=== PATIENT | female | born 1990 | race Caucasian/White ===

== ENCOUNTER → 2021-02-10 14:40 | Outpatient (BNVA) | payer MEDICARE, MEDICAID, SELFPAY | PROVIDERS: Visit Provider Nurse Practitioner | DX: N92.6 Irregular menstruation, unspecified (principal) | CPT/HCPCS: 81025 ==

== ENCOUNTER → 2021-07-14 11:26 | Outpatient (BNVA) | payer MEDICARE, MEDICAID, SELFPAY | PROVIDERS: Visit Provider Nurse Practitioner Family | DX: Z20.822 Contact with and (suspected) exposure to COVID-19 (principal); J06.9 Acute upper respiratory infection, unspecified | CPT/HCPCS: 87635 ==

== ENCOUNTER 2021-07-14 13:00 | Emergency (ER) | payer MEDICARE, MEDICAID, SELFPAY ==
[2021-07-14 13:06] VITALS: BP 115/72; PULSE 68; RESP 18; TEMP 36.8; O2SAT 99; BMI 25.0
[2021-07-14 13:35] VITALS: BP 126/74; PULSE 77; TEMP 36.9; O2SAT 98
--- NOTE | 2021-07-14 13:35 | XR_ITS ---
WS: [id number] Exam: XR acute abdomen series [id number] Date/Time of Exam: 07/14/2021 1:39 PM Reason For Exam: Abd Pain AP portable chest. No priors. The lungs are clear and fully inflated. Normal cardiomediastinal structures. S-shaped thoracolumbar s coliosis. Flat and erect abdomen. No bowel obstruction or free air. No sign of organ enlargement. Regional bony elements are intact. Levoscoliosis of the lumbar spine. XR/XR acute abdomen series [id number] IMPRESSION: 1. No acute cardiopulmonary finding. 2. No acute abdominal process. 3. Thoracolumbar scoliosis.
--- NOTE | 2021-07-14 13:37 | W.ED.ABDPA2 ---
HPI - Abdominal Pain General: Chief Complaint: Abdominal Pain Stated Complaint: ABD PAIN Time Seen by Provider: 07/14/21 13:31 History of Present Illness: HPI narrative: This patient is a 30-year-old female who presents to the emergency department with a complaint of mid epigastric abdominal pain. Patient states she has a long history of acid reflux. Patient also describes a loose stool. Patient does not appear to be acutely sick. Patient with mild palpation the patient winced in severe pain. However the patient does not appear to be in acute pain when in general conversation. Will do medical evaluation treat as needed. Vital signs are stable. MD elicited complaint: abdominal pain Pertinent past history: none Onset (ago): hour(s) Pain Consistency: constant Location: Epigastric Associated Symptoms: Reports diarrhea; Denies chills, dysuria, fever(s), nausea and vomiting Related Data: Date of Last Menstrual Period: 06/30/21 Review of Systems General: Reports: 10 or more systems reviewed and unremarkable except in HPI and below Const: Denies: fever(s), chills, body aches or fatigue Eyes: Denies: change in vision or blurry vision ENMT: Denies: throat pain, hoarseness or mouth pain Card: Denies: chest pain, palpitations, irregular heart rhythm, edema, swelling of feet/ankles or lightheadedness Resp: Denies: dyspnea, productive cough, non-productive cough, wheezing or pain on inspiration GI: Reports: abdominal pain and diarrhea; Denies: nausea or vomiting : Denies: flank pain, difficulty voiding, dysuria, urinary frequency, urinary urgency or urinary hesitancy Musc: Denies: neck pain, back pain, extremity pain, extremity swelling, joint pain, joint swelling, joint redness, joint warmth or limited range of motion Skin/Breast: Denies: rash, pruritus, erythema or skin tenderness Neuro: Denies: headache(s), numbness in extremities or weakness in extremities Psych: Denies: anxiety or depression [facility] Female Reproductive History: Date of last menstrual period: 06/30/21 Physical Exam Const: COMMON NORMALS: no acute distress, average body habitus, patient oriented x3, no limitations, healthy appearing, alert and well nourished HENMT: COMMON NORMALS: normocephalic, atraumatic, hearing grossly normal bilaterally, external ears normal, EAC's normal, TM's normal bilaterally, Normal external nose present, Normal nasal mucous membranes and turbinates present, moist oral mucous membranes, oropharynx normal, dentition normal and gingiva normal HEAD & SCALP: normocephalic and atraumatic NOSE: Normal external nose present and Normal nasal mucous membranes and turbinates present EXTERNAL EAR: Yes external ears normal EXTERNAL AUDITORY CANAL: EAC's normal TYMPANIC MEMBRANE: TM's normal bilaterally Neck/C-Spine: COMMON NORMALS: full ROM, no lymphadenopathy, supple, no meningeal signs, no JVD, Thyroid normal and No carotid bruits THYROID: Thyroid normal Chest: COMMONS NORMALS: normal inspection of the chest, normal palpation of entire chest wall, normal inspection of the breasts and normal palpation of the breasts Breast/axilla inspection: Yes normal inspection of the breasts BREAST/AXILLA PALPATION: Yes normal palpation of the breasts Resp: COMMON NORMALS: normal respiratory effort, No retractions, No use of accessory muscles, clear to auscultation bilaterally and percussion normal AUSCULTATION: clear to auscultation bilaterally PERCUSSION: percussion normal Cardio: COMMON NORMALS: no JVD, regular rate, regular rhythm, S1 normal heart sound present, S2 normal heart sound present, No gallops present (Cardio), No clicks present (Cardio), No murmurs present (Cardio), No rub (Cardio) and Peripheral pulses 2+ throughout RATE: regular rate RHYTHM: regular rhythm HEART SOUNDS: S1 normal heart sound present and S2 normal heart sound present PERIPHERAL PULSES: Peripheral pulses 2+ throughout GI: COMMON NORMALS: Normal to inspection, nondistended, normoactive bowel sounds present, Soft to palpation, non-tender, No hepatosplenomegaly present, no masses and no bruits PALPATION: Yes Soft to palpation and Yes No hepatosplenomegaly present Back/Pelvis: COMMON NORMALS: thoracic and lumbar spine normal to inspection, no thoracic nor lumbar tenderness, thoraco-lumbar ROM normal and straight leg raise negative bilaterally Extremity: COMMON NORMALS: normal to inspection, full ROM, capillary refill normal, no joint enlargement, no clubbing, cyanosis or edema, no calf tenderness and no pedal edema Neuro: COMMON NORMALS: patient oriented x3 SENSORIUM/ORIENTATION: Yes alert MENINGEAL SIGNS: Yes no meningeal signs Course Reevaluation(s): Reevaluation #1: Negative evaluation in the emergency department for any acute findings. Patient has long history of GERD and gastritis. Patient will be given a GI cocktail prior to discharge. Patient be discharged home the following instructions. Encourage p.o. fluids. [id number] omeprazole as needed. Follow-up with primary care physician in 2 to 3 days as needed. Time: 14:43 Vital Signs: Vital signs: Vital Signs Temperature 98.4 F 07/14/21 13:35 Pulse Rate 68 07/14/21 14:51 Respiratory Rate 18 07/14/21 13:06 Blood Pressure 131/72 07/14/21 14:51 Pulse Oximetry 98 07/14/21 14:51 MDM - Abdominal Pain MDM Narrative: Medical decision making narrative: Negative evaluation in the emergency department for any acute findings. Patient has long history of GERD and gastritis. Patient will be given a GI cocktail prior to discharge. Patient be discharged home the following instructions. Encourage p.o. fluids. [id number] omeprazole as needed. Follow-up with primary care physician in 2 to 3 days as needed. Differential Diagnosis: Differential diagnosis abdominal pain: Likely abdominal pain, acute appendicitis, calculus of kidney, constipation, diverticulitis, endometriosis, gastroenteritis, pancreatitis and small bowel obstruction Medical Records: Attestation: I reviewed the patient's medical records. Lab Data: Attestation: I reviewed the patient's lab results. Labs: Lab Results 07/14/21 07/14/21 07/14/21 13:36 13:36 13:36 WBC RBC Hgb Hct MCV MCH MCHC RDW Plt Count MPV Neut % (Auto) Lymph % (Auto) [place] % (Auto) Eos % (Auto) Baso % (Auto) Neut # (Auto) Lymph # (Auto) [place] # (Auto) Eos # (Auto) Baso # (Auto) Nucleated RBC % (a uto) Nucleated RBCs # Sodium Potassium Chloride Carbon Dioxide Anion Gap BUN Creatinine GFR Calculation Glucose Calculated Osmolal ity Calcium Total Bilirubin AST ALT Alkaline Phosphata se Total Protein Albumin Globulin Lipase HCG, Qual Negative (Negative) Urine Color Straw (Yellow) Urine Appearance Clear (CLEAR) Urine pH 5 (5-7) Ur Specific Gravit y 1.005 (1.005-1.030) Urine Protein Neg (Negative) Urine Glucose (UA) Norm (Normal) Urine Ketones Negative (Negative) Urine Blood 2+ H (Negative) Urine Nitrate Negative (Negative) Urine Bilirubin Neg (Negative) Urine Urobilinogen Norm mg/dL mg/dL (Negative) Ur Leukocyte Phyllis ase Negative (Negative) Urine RBC 0-4 /hpf H /hpf (0-2) Urine WBC Rare /hpf /hpf (0-5) Ur Squamous Epith Cells 0-4 /hpf H /hpf (0-5) Amorphous Sediment Not Reportable Urine Bacteria Trace /hpf /hpf (NONE) Urine Opiates Scre en Negative ng/mL ng /mL (Negative) Ur Barbiturates Sc reen Negative ng/mL ng /mL (Negative) Ur Phencyclidine S crn Negative ng/mL ng /mL (Negative) Ur Amphetamines Sc reen Negative ng/mL ng /mL (Negative) U Benzodiazepines Scrn Negative ng/mL ng /mL (Negative) Urine Cocaine Scre en Negative ng/mL ng /mL (Negative) U Marijuana (THC) Screen Negative ng/mL ng /mL (Negative) 07/14/21 07/14/21 14:13 14:13 WBC 8.5 10^3/uL 10^3/ uL (4.0-10.0) RBC 4.49 10^6/uL 10^6 /uL (4.1-5.3) Hgb 14.1 g/dL g/dL (11.5-15.3) Hct 41.5 % % (37.0-47.0) MCV 92.4 fl fl (81-99) MCH 31.4 pg pg (28.0-34.0) MCHC 34.0 g/dL g/dL (30.0-36.0) RDW 11.9 % L % (12.1-15.1) Plt Count 259 10^3/cmm 10^3 /cmm (130-400) MPV 10.5 fL H fL (7.4-10.4) Neut % (Auto) 76.1 % % Lymph % (Auto) 15.9 % % [place] % (Auto) 6.0 % % Eos % (Auto) 1.3 % % Baso % (Auto) 0.6 % % Neut # (Auto) 6.48 10^3/uL 10^3 /uL (1.8-7.7) Lymph # (Auto) 1.4 10^3/uL 10^3/ uL (0.8-4.8) [place] # (Auto) 0.5 10^3/uL 10^3/ uL (0.2-0.9) Eos # (Auto) 0.1 10^3/uL 10^3/ uL (0.0-0.8) Baso # (Auto) 0.1 10^3/uL 10^3/ uL (0.0-0.1) Nucleated RBC % (a uto) 0 % % Nucleated RBCs # 0.0 /100WBC /100W BC Sodium 140 mmol/L mmol/L (136-145) Potassium 4.0 mmol/L mmol/L (3.5-5.1) Chloride 104 mmol/L mmol/L (98-107) Carbon Dioxide 26 mmol/L mmol/L (22-29) Anion Gap 14.0 (5-19) BUN 3 mg/dL L mg/dL (6-20) Creatinine 0.6 mg/dL mg/dL (0.5-0.9) GFR Calculation 117.4 mL/min mL/m in (90-130) Glucose 88 mg/dL mg/dL (65-115) Calculated Osmolal ity 286 mOsm/kg mOsm/ kg (285-295) Calcium 8.8 mg/dL mg/dL (8.5-10.5) Total Bilirubin 0.5 mg/dL mg/dL (0.15-1.2) AST 13 U/L U/L (0-32) ALT 15 U/L U/L (0-33) Alkaline Phosphata se 62 IU/L IU/L (35-105) Total Protein 6.2 g/dL L g/dL (6.6-8.7) Albumin 4.0 g/dL g/dL (3.5-5.2) Globulin 2.2 g/dL g/dL (1.3-4.6) Lipase 29 U/L U/L (13-60) HCG, Qual Urine Color Urine Appearance Urine pH Ur Specific Gravit y Urine Protein Urine Glucose (UA) Urine Ketones Urine Blood Urine Nitrate Urine Bilirubin Urine Urobilinogen Ur Leukocyte Phyllis ase Urine RBC Urine WBC Ur Squamous Epith Cells Amorphous Sediment Urine Bacteria Urine Opiates Scre en Ur Barbiturates Sc reen Ur Phencyclidine S crn Ur Amphetamines Sc reen U Benzodiazepines Scrn Urine Cocaine Scre en U Marijuana (THC) Screen Imaging Data ^: CT Abd/Pel: Attestation: I personally reviewed and interpreted this imaging study as follows: Radiologist's impression: IMPRESSION: 1. No acute cardiopulmonary finding. 2. No acute abdominal process. 3. Thoracolumbar scoliosis. Discharge Plan Discharge Patient Disposition: Home Clinical Impression: Nonspecific abdominal pain, Hx of gastroesophageal reflux (GERD) Condition: Stable Prescriptions: No Action Tylenol Ex Str Rapid Release 500 mg Tablet 2,500 mg PO Q8H PRN (Reason: Pain) RF: 0 Discharge Orders: Discharge ED (Routine); Ordered 07/14/21 Ordered By: Darion Hankins Discharge Diet: Advance as tolerated Discharge Activity: Resume usual activity Patient Instructions: Abdominal Pain (ED), Opioid Safety Activity Restrictions/Additional Instructions: Encourage p.o. fluids. [id number] omeprazole as needed. Follow-up with primary care physician in 2 to 3 days as needed. Coding Level of Care Code ED Condenser Tube Tender for Kamran Fwd Exam Comprehensive
[2021-07-14 13:43] LABS: HCG Qualitative Urine. Negative (Negative)
[2021-07-14 14:18] LABS: Basophils # 0.1 10^3/uL (0.0-0.1); Basophils % 0.6 %; Eosinophils # 0.1 10^3/uL (0.0-0.8); Eosinophils % 1.3 %; Hematocrit 41.5 % (37.0-47.0); Hemoglobin 14.1 g/dL (11.5-15.3); Lymphocytes # 1.4 10^3/uL (0.8-4.8); Lymphocytes % 15.9 %; Mean Corpuscular Hemoglobin 31.4 pg (28.0-34.0); Mean Corpuscular Volume 92.4 fl (81-99); Mean Platelet Volume 10.5 fL (7.4-10.4); Monocytes # 0.5 10^3/uL (0.2-0.9); Neutrophils # 6.48 10^3/uL (1.8-7.7); Neutrophils % 76.1 %; Nucleated Red Blood Cells % 0 %; Platelet Count 259 10^3/cmm (130-400); Red Blood Count 4.49 10^6/uL (4.1-5.3); Red Cell Distribution Width 11.9 % (12.1-15.1); White Blood Count 8.5 10^3/uL (4.0-10.0)
[2021-07-14 14:22] LABS: Add Urine Microscopic? YES; Bacteria Urine TRACE /hpf; Bilirubin Urine Neg (Negative); Blood Urine 2+ (Negative); Glucose Urine UA Norm (Normal); Ketones Urine Negative (Negative); Leukocyte Esterase Urine Negative (Negative); Nitrate Urine Negative (Negative); Protein Urine Neg (Negative); RBC Urine 0-4 /hpf (0-2); Specific Gravity, Urine 1.005 (1.005-1.030); Squamous Epithelial Cell Urine 0-4 /hpf (0-5); Urine Appearance Clear (CLEAR); Urine Color Straw (Yellow); Urobilinogen Urine Norm (Negative); WBC Urine RARE /hpf (0-5); pH Urine 5 (5-7)
[2021-07-14 14:23] LABS: Add Urine Culture? No
[2021-07-14 14:24] LABS: Amphetamines Screen Urine Negative (Negative); Barbiturates Screen Urine Negative (Negative); Benzodiazepines Screen Urine Negative (Negative); Cocaine Screen Urine Negative (Negative); Opiate Screen Urine Negative (Negative); PCP Screen Urine Negative (Negative); THC Screen Urine Negative (Negative)
[2021-07-14] MEDS: sodium chloride 0.9% 1,000 ML 999 ML IV (14:24)
[2021-07-14 14:39] LABS: Alanine Aminotransferase 15 U/L (0-33); Alkaline Phosphatase 62 IU/L (35-105); Aspartate Amino Transferase 13 U/L (0-32); Blood Urea Nitrogen 3 mg/dL (6-20); Calcium 8.8 mg/dL (8.5-10.5); Carbon Dioxide 26 mmol/L (22-29); Chloride 104 mmol/L (98-107); Creatinine Clr Calc Pharmacy 142.8256; Globulin 2.2 g/dL (1.3-4.6); Glomerular Filtration Rate 117.4 mL/min (90-130); Glucose 88 mg/dL (65-115); Lipase 29 U/L (13-60); Osmolality Calculated 286 mOsm/kg (285-295); Sodium 140 mmol/L (136-145); Total Bilirubin 0.5 mg/dL (0.15-1.2); Total Protein 6.2 g/dL (6.6-8.7)
[2021-07-14] MEDS: lidocaine 2% viscous 15 ML, aluminum-mag hydrox-simethicon 30 ML, sucralfate oral liq 1 GM PO (14:48)
[2021-07-14 14:51] VITALS: BP 131/72; PULSE 68; O2SAT 98
[2021-07-14] MEDS: ondansetron 2 mg/ML SDV 2 mL 4 MG IVP (15:18)
== END 2021-07-14 15:19 | disposition home or self-care (01) ==
PROVIDERS: Emergency Provider Emergency Medicine
DX: R10.9 Unspecified abdominal pain (principal); Z20.822 Contact with and (suspected) exposure to COVID-19; J06.9 Acute upper respiratory infection, unspecified
CPT/HCPCS: 74022; 80053; 80306; 81001; 81025; 83690; 85025; 87635; 96361; 96374; 99283; J2405; J7030

== ENCOUNTER → 2021-07-15 14:37 | Outpatient (BNVA) | payer MEDICARE, MEDICAID, SELFPAY | PROVIDERS: Visit Provider Nurse Practitioner Family | DX: R10.11 Right upper quadrant pain (principal); R31.9 Hematuria, unspecified; R10.2 Pelvic and perineal pain; J01.90 Acute sinusitis, unspecified; R10.9 Unspecified abdominal pain | CPT/HCPCS: 81003; 87491; 87591; 87661 ==

== ENCOUNTER 2021-07-17 07:57 | Outpatient (CLI) | payer MEDICARE, MEDICAID, SELFPAY ==
[2021-07-17] MEDS: iohexol 300 mg/mL 100 mL Btl IV (08:54)
--- NOTE | 2021-07-17 09:30 | CT_ITS ---
WS: [id number] CT ABDOMEN PELVIS TECHNIQUE: Noncontrast CT of the abdomen and contrast-enhanced CT of the abdomen and pelvis with zachary nal and sagittal reformatted images. CLINICAL INFORMATION: Diffuse abd pain. COMPARISON: None. DLP: [id number] scans at [facility] use at least one of these dose optimization techniques: automated e xposure control; mA and/or kV adjustment per patient size (includes targeted exams where dose is matc hed to clinical indication); or iterative reconstruction. FINDINGS: No obstructing renal or ureteral calculi. Both ureters are decompressed. Normal renal parenchymal enh ancement. No hydronephrosis. Normal ureteral excretion on the delayed images. Normal bladder filling on the 5 minute delayed images. Bilateral peripheral enhancing ovarian cysts measuring 2.6 x 2.7 on the left and 2.0 x 1.4 cm on the right. This can be followed up with ultrasound. Prominent uterine enhancement with pelvic varicositie s. Fluid in the endometrial canal. Trace free fluid in the cul de sac. Lung bases are well aerated. Diffuse fatty infiltration liver with mild hepatomegaly. Normal gallblad [place]. Normal spleen. Adrenal glands are normal. Gallbladder appears normal. No intrahepatic biliary du ct dilatation. Normal pancreas. Normal portal veins and splenic vein. Normal caliber abdominal aorta aorta. Tiny fat-containing umbilical hernia. No high-grade small or large bowel obstruction. No abdom inal or pelvic lymphadenopathy. Lumbar scoliosis convex left. CT/CT abdomen pelvis wo/w [id number] IMPRESSION: 1. No obstructing renal or ureteral calculi. No hydronephrosis. 2. Normal excretion on the delayed images. Normal bladder filling. 3. Bilateral peripherally enhancing ovarian cysts measuring 2.6 x 2.7 on the l eft and 2.0 x 1.4 cm on the right. This can be followed up with ultrasound. 4. Hepatomegaly with diffuse fatty infiltration of the liver. 5. Gallbladder appears normal. No intrahepatic biliary ductal dilatation. 6. Prominent uterine enhancement with pelvic varicosities. 7. Trace free fluid in the cul-de-sac. 8. Lumbar scoliosis convex left.
== END 2021-07-17 07:58 | disposition home or self-care (01) ==
PROVIDERS: Visit Provider Nurse Practitioner Family
DX: R10.11 Right upper quadrant pain (principal); R10.2 Pelvic and perineal pain; N83.202 Unspecified ovarian cyst, left side; N83.201 Unspecified ovarian cyst, right side; R16.0 Hepatomegaly, not elsewhere classified; K76.0 Fatty (change of) liver, not elsewhere classified; M41.86 Other forms of scoliosis, lumbar region
CPT/HCPCS: 74178; Q9967

== ENCOUNTER → 2022-02-05 11:51 | Outpatient (BNVA) | payer MEDICARE, MEDICAID, SELFPAY | PROVIDERS: PCP Nurse Practitioner Family; Visit Provider Nurse Practitioner Family | DX: N92.0 Excessive and frequent menstruation with regular cycle (principal); R53.83 Other fatigue; Z00.00 Encounter for general adult medical examination without abnormal findings; Z13.6 Encounter for screening for cardiovascular disorders; Z13.1 Encounter for screening for diabetes mellitus | CPT/HCPCS: 80053; 80061; 82607; 82728; 82746; 83550; 84443 ==

== ENCOUNTER → 2022-04-12 10:42 | Outpatient (BNVA) | payer MEDICARE, MEDICAID, SELFPAY | PROVIDERS: PCP Nurse Practitioner Family; Visit Provider Nurse Practitioner Family | DX: K92.1 Melena (principal); Z13.1 Encounter for screening for diabetes mellitus; R10.811 Right upper quadrant abdominal tenderness; R10.13 Epigastric pain; K27.9 Peptic ulcer, site unspecified, unspecified as acute or chronic, without hemorrhage or perforation; R10.9 Unspecified abdominal pain; F17.210 Nicotine dependence, cigarettes, uncomplicated | CPT/HCPCS: 80053; 81003; 81025; 83690; 85025 ==

== ENCOUNTER → 2023-10-19 10:10 | Outpatient (BNVA) | payer MEDICARE, MEDICAID, SELFPAY | PROVIDERS: PCP Nurse Practitioner Family; Visit Provider Nurse Practitioner | DX: J06.9 Acute upper respiratory infection, unspecified (principal); J10.1 Influenza due to other identified influenza virus with other respiratory manifestations | CPT/HCPCS: 87400 ==

== ENCOUNTER → 2023-11-18 09:10 | Outpatient (BNVA) | payer MEDICARE, MEDICAID, SELFPAY | PROVIDERS: PCP Nurse Practitioner Family; Referring Provider Nurse Practitioner Family; Visit Provider Nurse Practitioner | DX: S49.92XA Unspecified injury of left shoulder and upper arm, initial encounter (principal); W19.XXXA Unspecified fall, initial encounter; M77.8 Other enthesopathies, not elsewhere classified | CPT/HCPCS: 73030; 99204 ==

== ENCOUNTER → 2023-12-02 09:28 | Outpatient (BNVA) | payer MEDICARE, MEDICAID, SELFPAY | PROVIDERS: PCP Nurse Practitioner Family; Visit Provider Nurse Practitioner | DX: M77.8 Other enthesopathies, not elsewhere classified (principal) | CPT/HCPCS: 99213 ==

== ENCOUNTER 2024-01-23 17:00 | Emergency (ER) | payer MEDICARE, MEDICAID, SELFPAY ==
[2024-01-23 17:11] VITALS: BP 115/80; PULSE 110; RESP 16; TEMP 37; O2SAT 97; BMI 24.3
--- NOTE | 2024-01-23 17:43 | CTR_ITS ---
PROCEDURE INFORMATION: Exam: CT Abdomen And Pelvis With Contrast Exam date and time: 01/23/2024 6:39 PM Age: 33 years old Clinical indication: Abdominal pain; Localized; Right lower quadrant (rlq); Additional info: Abd pain TECHNIQUE: Imaging protocol: Computed tomography of the abdomen and pelvis with contrast. Radiation optimization: All CT scans at this facility use at least one of these dose optimization techniques: automated exposure control; mA and/or kV adjustment per patient size (includes targeted exams where dose is matched to clinical indication); or iterative reconstruction. Contrast material: OMNI 350; Contrast volume: 100 ml; Contrast route: INTRAVENOUS (IV); COMPARISON: CT abdomen pelvis wo/w [id number] 07/17/2021 8:34 AM RADIATION DOSE METRICS: Total DLP (mGy-cm): 433.83 FINDINGS: Heart: Small pericardial effusion. Liver: Liver is unremarkable in contour and size. Focal fatty infiltration around the falciform ligament. Gallbladder and bile ducts: Gallbladder unremarkable in appearance without radio-opaque stone. No intra or extrahepatic biliary ductal dilation. Pancreas: Pancreas is unremarkable in appearance. No ductal dilation. Spleen: The spleen is normal in size and contour. Stable appearance to prominent splenule. Adrenal glands: Adrenal glands are unremarkable in appearance. Kidneys and ureters: Kidneys and ureters are unremarkable in appearance. No hydronephrosis. No radio-opaque stone. Stomach and bowel: Nonspecific bowel wall thickening is seen involving multiple loops of distal small bowel within the pelvis and right abdomen. No evidence of bowel obstruction. Appendix: Appendix is not seen, however, there is no secondary signs of appendicitis. Intraperitoneal space: Small amount of free fluid within the pelvis. Vasculature: Unremarkable. No abdominal aortic aneurysm. Prominent left periuterine vessels. Pelvic congestion syndrome cannot be excluded. Recommend clinical correlation. Lymph nodes: Unremarkable. No enlarged lymph nodes. Urinary bladder: Unremarkable bladder. Reproductive: Uterus present. Bilateral ovarian/adnexal cyst. Pelvic gynecological structures would be better assessed with pelvic ultrasound if clinically warranted. Bones/joints: Levoscoliosis of the lower thoracolumbar spine. Soft tissues: Visualized subcutaenous tissues are unremarkable. CT/CT abdomen pelvis w con* [id number] IMPRESSION: 1. Nonspecific bowel wall thickening is seen involving multiple loops of distal small bowel within the pelvis and right abdomen. Findings are compatible with a nonspecific enteritis. Both infectious and inflammatory etiologies cannot be excluded. Recommend clinical correlation and follow up imaging as clinically warranted. 2. Prominent left periuterine vessels. Pelvic congestion syndrome cannot be excluded. Recommend clinical correlation.
--- NOTE | 2024-01-23 17:46 | ED_ITS ---
HPI - Abdominal Pain 2 General: Chief Complaint: Abdominal Pain Stated Complaint: abd pain, n/v, fever Time Seen by Provider: 01/23/24 17:22 Source: patient Mode of arrival: ambulatory History of Present Illness: 33-year-old female who states that she h as had abdominal pain since yesterday states pain is on the right side mainly in the right lower quadrant states that sharp cramping pain she rates the pain a 7 out of 10 is worse with palpation she had some nausea denies any fevers denies any diarrhea denies any vaginal discharge Associated Symptoms: Denies chills, diarrhea and fever(s) Related Data: Date of Last Menstrual Period: 01/16/24 Review of Systems 2 Const: Denies: fever(s), chills, body aches or change in appetite ENMT: Denies: throat pain or dental pain Card: Denies: chest pain Resp: Denies: dyspnea GI: Reports: abdominal pain; Denies: diarrhea Musc: Denies: neck pain or back pain Skin/Breast: Denies: rash Neuro: Denies: headache(s) PFSH ED 2 PFSH: Medical History Fall Deltoid tendinitis of left shoulder Family History Grandfather Hypertension Stroke Grandmother Lung disease Stroke Mother Lung disease Denies family history of Colon cancer Ovarian cancer Diabetes Heart disease Breast cancer Uterine cancer Thyroid disease Female Reproductive History: Date of last menstrual period: 01/16/24 Physical Exam 2 Const: COMMON NORMALS: no acute distress, patient oriented x3 and healthy appearing HENMT: COMMON NORMALS: normocephalic and atraumatic HEAD & SCALP: n ormocephalic and atraumatic Neck/C-Spine: COMMON NORMALS: full ROM and supple Chest: COMMONS NORMALS: normal inspection of the chest Resp: COMMON NORMALS: normal respiratory effort Cardio: COMMON NORMALS: regular rate, regular rhythm and No murmurs present (Cardio) RATE: regular rate RHYTHM: regular rhythm GI: COMMON NORMALS: Normal to inspection, nondistended, normoactive bowel sounds present, Soft to palpation and no masses PALPATION: Yes Soft to palpation and Yes Tenderness to palpation present (GI) Extremity: COMMON NORMALS: normal to inspection and full ROM Neuro: COMMON NORMALS: patient oriented x3, moves all extremities and no focal motor deficits Psych: COMMON NORMALS: mental status grossly normal, Normal thought process present and cooperative THOUGHT PROCESS: Normal thought process present Skin: COMMON NORMALS: no rashes or lesions noted and no wounds GENERAL SKIN EXAM: no rashes or lesions noted Course 2 Vital Signs: Vital signs: Vital Signs Temperature 98.6 F 01/23/24 17:11 Pulse Rate 84 01/23/24 18:00 Respiratory Rate 18 01/23/24 18:06 Blood Pressure 125/76 01/23/24 18:00 Pulse Oximetry 96 01/23/24 18:06 Oxygen Delivery Me thod Room Air 01/23/24 17:11 MDM - Abdominal Pain Medical Decision Making Patient presents here with abdominal pain CT showed enteritis blood works normal no signs of acute surgical abdomen she stable for discharge we will place her on Bentyl along with Zofran she is follow-up with surgery return if worsening she understands agrees with plan Medical Records I reviewed the patient's medical records. Lab Data I reviewed the patient's lab results. 01/23/24 17:51 01/23/24 17:51 Labs/Radiology: Radiology Impressions Abdomen/Pelvis CT 01/23/24 17:43 IMPRESSION: 1. Nonspecific bowel wall thickening is seen involving multiple loops of distal small bowel within the pelvis and right abdomen. Findings are compatible with a nonspecific enteritis. Both infectious and inflammatory etiologies cannot be excluded. Recommend clinical correlation and follow up imaging as clinically warranted. 2. Prominent left periuterine vessels. Pelvic congestion syndrome cannot be excluded. Recommend clinical correlation. Laboratory Results WBC 7.51 10^3/uL (3.29-11.43) 01/23/24 17:51 RBC 4.94 10^6/uL (3.85-5.65) 01/23/24 17:51 Hgb 16.00 g/dL (11.27-16.99) 01/23/24 17:51 Hct 46.5 % (36-47) 01/23/24 17:51 MCV 94.1 fl (85-98) 01/23/24 17:51 MCH 32.4 pg (27-33) 01/23/24 17:51 MCHC 34.4 g/dL (30-55) 01/23/24 17:51 RDW 12.7 % (12.1-15.1) 01/23/24 17:51 Plt Count 236 10^3/cmm (157-399) 01/23/24 17:51 MPV 9.9 fL (7.4-10.4) 01/23/24 17:51 Neut % (Auto) 80.3 % 01/23/24 17:51 Lymph % (Auto) 12.9 % 01/23/24 17:51 [place] % (Auto) 4.8 % 01/23/24 17:51 Eos % (Auto) 1.1 % 01/23/24 17:51 Baso % (Auto) 0.5 % 01/23/24 17:51 Neut # (Auto) 6.03 10^3/uL (1.8-7.7) 01/23/24 17:51 Lymph # (Auto) 1.0 10^3/uL (0.8-4.8) 01/23/24 17:51 [place] # (Auto) 0.4 10^3/uL (0.2-0.9) 01/23/24 17:51 Eos # (Auto) 0.1 10^3/uL (0.0-0.8) 01/23/24 17:51 Baso # (Auto) 0.0 10^3/uL (0.0-0.1) 01/23/24 17:51 Nucleated RBC % (auto) 0 % 01/23/24 17:51 Nucleated RBCs # 0.0 /100WBC 01/23/24 17:51 Sodium 135 mmol/L (136-145) L 01/23/24 17:51 Potassium 4.0 mmol/L (3.5-5.1) 01/23/24 17:51 Chloride 100 mmol/L (98-107) 01/23/24 17:51 Carbon Dioxide 24 mmol/L (22-29) 01/23/24 17:51 Anion Gap 15.0 (5-19) 01/23/24 17:51 BUN 6 mg/dL (6-20) 01/23/24 17:51 Creatinine 0.6 mg/dL (0.5-0.9) 01/23/24 17:51 GFR Calculation 115.1 mL/min (90-130) 01/23/24 17:51 Glucose 105 mg/dL (65-115) 01/23/24 17:51 Calculated Osmolality 278 mOsm/kg (285-295) L 01/23/24 17:51 Calcium 9.1 mg/dL (8.5-10.5) 01/23/24 17:51 Total Bilirubin 0.4 mg/dL (0.15-1.2) 01/23/24 17:51 AST 11 U/L (0-32) 01/23/24 17:51 ALT 8 U/L (0-33) 01/23/24 17:51 Alkaline Phosphatase 78 U/L (35-105) 01/23/24 17:51 Total Protein 6.8 g/dL (6.6-8.7) 01/23/24 17:51 Albumin 4.0 g/dL (3.5-5.2) 01/23/24 17:51 Globulin 2.8 g/dL (1.3-4.6) 01/23/24 17:51 Lipase 19 U/L (13-60) 01/23/24 17:51 HCG, Qual Negative (Negative) 01/23/24 17:51 Urine Color Yellow (Yellow) 01/23/24 18:08 Urine Appearance Sl hazy (CLEAR) A 01/23/24 18:08 Urine pH 5 (5-7) 01/23/24 18:08 Ur Specific [place] 1.020 (1.005-1.030) 01/23/24 18:08 Urine Protein Trace (Negative) 01/23/24 18:08 Urine Glucose (UA) Norm (Normal) 01/23/24 18:08 Urine Ketones 2+ (Negative) H 01/23/24 18:08 Urine Blood 3+ (Negative) H 01/23/24 18:08 Urine Nitrate Negative (Negative) 01/23/24 18:08 Urine Bilirubin Neg (Negative) 01/23/24 18:08 Urine Urobilinogen Norm mg/dL (Negative) 01/23/24 18:08 Ur Leukocyte Esterase Trace (Negative) H 01/23/24 18:08 Urine RBC 5-10 /hpf (0-2) H 01/23/24 18:08 Urine WBC 5-10 /hpf (0-5) H 01/23/24 18:08 Ur Squamous Epith Cells 5-10 /hpf (0-5) H 01/23/24 18:08 Amorphous Sediment Trace /hpf 01/23/24 18:08 Urine Bacteria Trace /hpf (NONE) 01/23/24 18:08 All radiology interpretation(s) finalized by discharge Discharge Plan Discharge Patient Disposition: Home Clinical Impression: Abdominal pain Condition: Stable Prescriptions: New ondansetron 4 mg tablet,disintegrating 4 mg PO Q6H PRN (Reason: nausea and vomiting) Qty: 14 0RF dicyclomine 20 mg tablet 20 mg PO TID PRN (Reason: abdominal pain) Qty: 20 0RF No Action ondansetron HCl 8 mg tablet 8 mg PO Q12H PRN (Reason: nausea and vomiting) Qty: 10 0RF Discharge Orders: Discharge ED (Routine); Ordered 01/23/24 Ordered By: Dinora Gandhi Referrals: Courtney Gaona, 4TH GRADE TEACHER-C [Primary Care Provider] - Eliot Frank DO [Physician] - 1-3 days Discharge Diet: Advance as tolerated Discharge Activity: Resume usual activity Patient Instructions: Abdominal Pain (ED) Coding Level of Care Code ED Operations Project Manager for Kamran Lauren
[2024-01-23] MEDS: ondansetron 2 mg/ML SDV 2 mL 4 MG IVP (17:57)
[2024-01-23 17:58] LABS: Basophils % 0.5 %; Eosinophils # 0.1 10^3/uL (0.0-0.8); Eosinophils % 1.1 %; Hematocrit 46.5 % (36-47); Lymphocytes % 12.9 %; Mean Corpuscular HGB Conc 34.4 g/dL (30-55); Mean Corpuscular Hemoglobin 32.4 pg (27-33); Mean Corpuscular Volume 94.1 fl (85-98); Mean Platelet Volume 9.9 fL (7.4-10.4); Monocytes # 0.4 10^3/uL (0.2-0.9); Monocytes % 4.8 %; Neutrophils # 6.03 10^3/uL (1.8-7.7); Neutrophils % 80.3 %; Nucleated Red Blood Cells % 0 %; Platelet Count 236 10^3/cmm (157-399); Red Blood Count 4.94 10^6/uL (3.85-5.65); Red Cell Distribution Width 12.7 % (12.1-15.1); White Blood Count 7.51 10^3/uL (3.29-11.43)
[2024-01-23 18:00] VITALS: BP 125/76; PULSE 84; RESP 20; O2SAT 98
[2024-01-23 18:06] VITALS: RESP 18; O2SAT 96
[2024-01-23] MEDS: morphine 4 mg/mL SDV 1 mL IVP (18:06)
[2024-01-23 18:27] LABS: HCG, Serum Qual Negative (Negative)
[2024-01-23 18:31] LABS: Alanine Aminotransferase 8 U/L (0-33); Alkaline Phosphatase 78 U/L (35-105); Aspartate Amino Transferase 11 U/L (0-32); Blood Urea Nitrogen 6 mg/dL (6-20); Calcium 9.1 mg/dL (8.5-10.5); Carbon Dioxide 24 mmol/L (22-29); Chloride 100 mmol/L (98-107); Creatinine Clr Calc Pharmacy 137.0204; Globulin 2.8 g/dL (1.3-4.6); Glomerular Filtration Rate 115.1 mL/min (90-130); Glucose 105 mg/dL (65-115); Lipase 19 U/L (13-60); Osmolality Calculated 278 mOsm/kg (285-295); Sodium 135 mmol/L (136-145); Total Bilirubin 0.4 mg/dL (0.15-1.2); Total Protein 6.8 g/dL (6.6-8.7)
[2024-01-23] MEDS: iohexol 350 mg/mL 500 mL Btl (per mL) IV (18:40)
[2024-01-23 19:09] LABS: Add Urine Microscopic? YES; Bilirubin Urine Neg (Negative); Blood Urine 3+ (Negative); Glucose Urine UA Norm (Normal); Ketones Urine 2+ (Negative); Leukocyte Esterase Urine Trace (Negative); Nitrate Urine Negative (Negative); Protein Urine Trace (Negative); Urine Appearance SL Hazy (CLEAR); Urine Color Yellow (Yellow); Urobilinogen Urine Norm (Negative); pH Urine 5 (5-7)
[2024-01-23 19:10] LABS: Add Urine Culture? No; Amorphous Sediment Urine TRACE /hpf; Bacteria Urine TRACE /hpf
[2024-01-23 20:00] VITALS: BP 114/67; PULSE 74; RESP 16; O2SAT 96
--- NOTE | 2024-01-24 08:19 | DCPLANNER ---
Mary Jane sent to Gen surg for abd pain
== END 2024-01-23 20:03 | disposition home or self-care (01) ==
PROVIDERS: Emergency Provider Emergency Medicine; PCP Nurse Practitioner Family
DX: R10.31 Right lower quadrant pain (principal)
CPT/HCPCS: 36415; 74177; 80053; 81001; 83690; 84703; 85025; 96374; 96375; 99285; J2270; J2405; Q9967

== ENCOUNTER 2024-10-31 10:21 | Emergency (ER) | payer MEDICARE, MEDICAID, SELFPAY ==
[2024-10-31 10:22] VITALS: BP 95/50; PULSE 99; RESP 18; TEMP 36.7; O2SAT 99; BMI 25.0
--- NOTE | 2024-10-31 10:23 | XR_ITS ---
WS: [id number] XR chest 1V portable [id number] REASON FOR EXAM: cough FINDINGS: Chest is unchanged compared to 07/14/2021. The chest is unchanged compared to 07/14/2021. The heart and the mediastinum are within normal limits. Calcified granulomatous disease bilaterally. No acute pulmonary parenchymal or pleural abnormality is identified. Moderately severe dextroscoliosis of the thoracic spine. XR/XR chest 1V portable [id number] IMPRESSION: Stable chest without acute abnormality.
--- NOTE | 2024-10-31 12:20 | W.ED.URI ---
HPI - URI/Sore Throat General: Chief Complaint: Upper Respiratory Infection Stated Complaint: SOB,congestion Time Seen by Provider: 10/31/24 12:04 Source: patient Mode of arrival: ambulatory Limitations: no limitations History of Present Illness: 33-year-old female who states of the last week she had been having cough congestion along with wheezing she does have a history of asthma states she was diagnosed with a bronchitis 2 days ago started on amoxicillin along with an inhaler states she has had no improvement denies any fever she is in no distress here. Associated symptoms: Deny abdominal pain, chills, chest pain, diarrhea, fever(s), headache(s), nausea or vomiting Related Data Previous Rx's Medication Instructions Recorded albuterol sulfate 90 mcg/actuation 2 puff inhalation Q6H PRN 10/27/24 aerosol inhaler shortness of breath or wheezing #8.5 grams amoxicillin 500 mg tablet 500 mg PO BID 10 days #20 tabs 10/27/24 Allergies Allergy/AdvReac Type Severity Reaction Status Date / Time No Known Allergies Allergy Verified 10/27/24 11:17 Review of Systems Const: Denies: fever(s), chills, body aches or change in appetite Eyes: Denies: blurry vision or eye discomfort ENMT: Denies: throat pain or dental pain Card: Denies: chest pain Resp: Reports: dyspnea, non-productive cough and wheezing GI: Denies: abdominal pain, nausea, vomiting or diarrhea Musc: Denies: neck pain or back pain Skin/Breast: Denies: rash Neuro: Denies: headache(s) PFS ED PFSH: Medical History Asthma Fall Deltoid tendinitis of left shoulder Family History Grandfather Hypertension Stroke Grandmother Lung disease Stroke Mother Lung disease Denies family history of Colon cancer Ovarian cancer Diabetes Heart disease Breast cancer Uterine cancer Thyroid disease Social History Smoking and tobacco/nicotine status: never used tobacco/nicotine Physical Exam Const: COMMON NORMALS: no acute distress, patient oriented x3 and healthy appearing HENMT: COMMON NORMALS: normocephalic and atraumatic HEAD & SCALP: normocephalic and atraumatic Neck/C-Spine: COMMON NORMALS: full ROM and supple Chest: COMMONS NORMALS: normal inspection of the chest Resp: COMMON NORMALS: normal respiratory effort, No retractions and No use of accessory muscles AUSCULTATION: wheezes Cardio: COMMON NORMALS: regular rate, regular rhythm and No murmurs present (Cardio) RATE: regular rate RHYTHM: regular rhythm Extremity: COMMON NORMALS: normal to inspection and full ROM Neuro: COMMON NORMALS: patient oriented x3, moves all extremities and no focal motor deficits Psych: COMMON NORMALS: mental status grossly normal, Normal thought process present and cooperative THOUGHT PROCESS: Normal thought process present Skin: COMMON NORMALS: no rashes or lesions noted and no wounds GENERAL SKIN EXAM: no rashes or lesions noted Course Vital Signs: Vital signs: Vital Signs Temperature 98.0 F 10/31/24 10:22 Pulse Rate 86 10/31/24 12:31 Respiratory Rate 18 10/31/24 12:31 Blood Pressure 95/50 10/31/24 10:22 Pulse Oximetry 96 10/31/24 12:31 Oxygen Delivery Me thod Room Air 10/31/24 12:31 MDM - URI/Sore Throat Medical Decision Making Patient presents here with cough congestion did test positive for RSV she is well-appearing here she stable for discharge follow-up with PCP return if worsening. Medical Records I reviewed the patient's medical records. Lab Data I reviewed the patient's lab results. Radiology Impressions Chest X-Ray 10/31/24 10:23 IMPRESSION: Stable chest without acute abnormality. Laboratory Results Adenovirus (PCR) Not detected (NOT DETECT) 10/31/24 10:57 C. pneumoniae DNA (PCR) Not detected (NOT DETECT) 10/31/24 10:57 Coronavirus 229E (PCR) Not detected (NOT DETECT) 10/31/24 10:57 Human Metapneumovir PCR Not detected (NOT DETECT) 10/31/24 10:57 Influenza A (H1) PCR Not detected (NOT DETECT) 10/31/24 10:57 Influ A (H1/09) PCR Not detected (NOT DETECT) 10/31/24 10:57 Influenza A (H3) PCR Not detected (NOT DETECT) 10/31/24 10:57 Influenza Type A (PCR) Not detected (NOT DETECT) 10/31/24 10:57 Influenza Type B (PCR) Not detected (NOT DETECT) 10/31/24 10:57 M. pneumoniae (PCR) Not detected (NOT DETECT) 10/31/24 10:57 Parainfluenza 1 (PCR) Not detected (NOT DETECT) 10/31/24 10:57 Parainfluenza 2 (PCR) Not detected (NOT DETECT) 10/31/24 10:57 Parainfluenza 3 (PCR) Not detected (NOT DETECT) 10/31/24 10:57 Parainfluenza 4 (PCR) Not detected (NOT DETECT) 10/31/24 10:57 RSV Type A (PCR) Not detected (NOT DETECT) 10/31/24 10:57 RSV Type B (PCR) Detected (NOT DETECT) A 10/31/24 10:57 Entero/Rhino (PCR) Not detected (NOT DETECT) 10/31/24 10:57 SARS-CoV-2 (PCR) Not detected (NOT DETECT) 10/31/24 10:57 XR interpretation done by ED provider, pending radiology final review ED provider radiology interpretation(s): Chest x-ray no acute normality Discharge Plan Discharge Patient Disposition: Home Clinical Impression: RSV bronchiolitis Condition: Stable Prescriptions: No Action albuterol sulfate 90 mcg/actuation HFA aerosol inhaler 2 puff inhalation Q6H PRN (Reason: shortness of breath or wheezing) Qty: 8.5 0RF amoxicillin 500 mg tablet 500 mg PO BID 10 Days Qty: 20 0RF Discharge Orders: Discharge ED (Routine); Ordered 10/31/24 Ordered By: Dinora Gandhi Referrals: Courtney Gaona FNP-C [Primary Care Provider] - Discharge Diet: Advance as tolerated Discharge Activity: Resume usual activity Patient Instructions: RSV (Respiratory Syncytial Virus) Infection (ED) Coding Level of Care Code ED Cigar Head Stringer for Kamran Lauren
[2024-10-31 12:31] VITALS: PULSE 86; RESP 18; O2SAT 96
[2024-10-31] MEDS: ipratropium-albuterol 3 mL Neb INHALATION (12:33)
[2024-10-31] MEDS: albuterol 2.5 mg/3 mL Neb INHALATION (12:33)
[2024-10-31] MEDS: dexamethasone 10 mg/mL INJ IM (12:37)
[2024-10-31 12:58] LABS: Adenovirus Not Detected (NOT DETECT); Chlamydia Pneumoniae Not Detected (NOT DETECT); Coronavirus 229E,HKU1,NL63,OC4 Not Detected (NOT DETECT); Human Metapneumovirus Not Detected (NOT DETECT); Human Rhinovirus/Enterovirus Not Detected (NOT DETECT); Influenza A Not Detected (NOT DETECT); Influenza A H1 Not Detected (NOT DETECT); Influenza A H1-2009 Not Detected (NOT DETECT); Influenza A H3 Not Detected (NOT DETECT); Influenza B Not Detected (NOT DETECT); Mycoplasma Pneumoniae Not Detected (NOT DETECT); Parainfluenza Virus Type 1 Not Detected (NOT DETECT); Parainfluenza Virus Type 2 Not Detected (NOT DETECT); Parainfluenza Virus Type 3 Not Detected (NOT DETECT); Parainfluenza Virus Type 4 Not Detected (NOT DETECT); Respiratory Syncytial Virus A Not Detected (NOT DETECT); SARS-COV-2 Not Detected (NOT DETECT)
[2024-10-31 13:01] LABS: Respiratory Syncytial Virus B Detected (NOT DETECT)
[2024-10-31 13:32] VITALS: BP 140/83; PULSE 98; O2SAT 98
== END 2024-10-31 13:33 | disposition home or self-care (01) ==
PROVIDERS: Emergency Provider Emergency Medicine; PCP Nurse Practitioner Family
DX: J21.0 Acute bronchiolitis due to respiratory syncytial virus (principal); Z11.52 Encounter for screening for COVID-19
CPT/HCPCS: 71045; 87486; 87581; 87633; 94640; 96372; 99284; J1100; J7613

== ENCOUNTER 2025-02-24 11:33 | Inpatient (IN) | payer MEDICARE, MEDICAID, SELFPAY ==
[2025-02-24] VITALS (30 sets, daily range): BP systolic 104–130; BP diastolic 57–86; PULSE 55–97; RESP 14–34; TEMP 36.2–36.7; O2SAT 92–100; BMI 25.0; BMI 26.4
--- NOTE | 2025-02-24 11:45 | XRR_ITS ---
PROCEDURE INFORMATION: Exam: XR Chest Exam date and time: 02/24/2025 12:19 PM Age: 34 years old Clinical indication: Chest pressure; PT arrives pov C/O chest pain and SOB that started this morning. Denies cardiac HX, has HX of anxiety and panic attacks. Denies blood thinners. C/O tingling in R arm too. TECHNIQUE: Imaging protocol: Radiologic exam of the chest. Views: 1 view. COMPARISON: CR XR chest 1V portable [id number] 10/31/2024 12:10 PM FINDINGS: Lungs: Unremarkable. No consolidation or mass. Pleural spaces: Unremarkable. No pleural effusion. No pneumothorax. Heart/Mediastinum: Unremarkable. No cardiomegaly. Bones/joints: Prominent thoracic scoliosis is noted. XR/XR chest 1V portable [id number] IMPRESSION: No acute findings.
--- NOTE | 2025-02-24 11:45 | ECG_ITS ---
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 Measurements Intervals [place] Rate: 73 P: 45 [place]: 143 QRS: 67 QRSD: 86 T: 64 QT: 409 QTc: 453 Interpretive Statements SINUS RHYTHM INTERPRETATION BASED ON A DEFAULT AGE OF 40 YEARS No previous ECG available for comparison Electronically Signed On 02-24-2025 21:09:04 CDT by Lilli Duarte M.D. [email or web address]
--- NOTE | 2025-02-24 12:12 | W.ED.CHESTPA ---
HPI - Chest Pain General: Chief Complaint: Chest Pain Stated Complaint: chest pain, SOB Time Seen by Provider: 02/24/25 12:11 History of Present Illness: 34-year-old female with a history of asthma and anxiety who presents emergency room with left-sided chest pain. She says it started this morning. She feels a pressure in her left chest. She has had some cough recently. No fevers. Is also complaining of some numbness in her right arm. No lower extremity swelling. No calf pain. She does report a very strong cardiac history in her family. Related Data Previous Rx's ?Medication ?Instructions ?Recorded albuterol sulfate 2.5 mg/3 mL 2.5 mg (3 mL) inhalation Q4H PRN 11/06/24 (0.083 %) solution for nebulization shortness of breath or wheezing #90 mL Allergies Allergy/AdvReac Type Severity Reaction Status Date / Time ibuprofen Allergy Unknown Verified 02/24/25 11:46 Review of Systems Narrative: Constitutional symptoms: Negative except as documented in HPI. Skin symptoms: Negative except as documented in HPI. Eye symptoms: Negative except as documented in HPI. ENMT symptoms: Negative except as documented in HPI. Respiratory symptoms: Negative except as documented in HPI. Cardiovascular symptoms: Negative except as documented in HPI. Gastrointestinal symptoms: Negative except as documented in HPI. Genitourinary symptoms: Negative except as documented in HPI. Musculoskeletal symptoms: Negative except as documented in HPI. Neurologic symptoms: Negative except as documented in HPI. Psychiatric symptoms: Negative except as documented in HPI. Endocrine symptoms: Negative except as documented in HPI. [facility] ED PFSH: Medical History (Updated 01/09/25 @ 07:11 by Justus Mariano MD) Ovulation pain History of ovarian cyst Asthma Fall Deltoid tendinitis of left shoulder Family History Grandfather Hypertension Stroke Grandmother Lung disease Stroke Mother Lung disease Denies family history of Colon cancer Ovarian cancer Diabetes Heart disease Breast cancer Uterine cancer Thyroid disease Social History Smoking and tobacco/nicotine status: never used tobacco/nicotine Physical Exam Narrative: EXAM NARRATIVE: General: Alert, no acute distress. Skin: Warm, dry. Head: Normocephalic, atraumatic. Neck: Supple, trachea midline. Eye: Extraocular movements are intact. Ears, nose, mouth and throat: mucosa moist. Cardiovascular: Regular, Normal peripheral perfusion. Respiratory: Lungs are clear to auscultation, respirations are non-labored, breath sounds are equal, Symmetrical chest wall expansion. Gastrointestinal: Soft, Nontender, Non distended Musculoskeletal: Normal ROM, no deformity. Neurological: Alert and oriented, No focal neurological deficit observed. Psychiatric: Cooperative, appropriate mood & affect. Course Vital Signs: Vital signs: Vital Signs Temperature 97.2 F L 02/24/25 11:34 Pulse Rate 69 02/24/25 14:02 Respiratory Rate 18 02/24/25 14:02 Blood Pressure 124/86 02/24/25 14:02 Pulse Oximetry 92 02/24/25 14:02 Oxygen Delivery Me thod Room Air 02/24/25 14:02 MDM - Chest Pain Medical Decision Making Differential diagnosis for patient with chest pain includes but is not limited to and based on the above HPI, review of systems and physical exam: Pneumonia. unstable angina. angina. Acute coronary syndrome / [place]. Pulmonary embolism. Costochondritis / musculoskeletal. Pleurisy. Pericarditis. Esophageal spasm. Pancreatis. Cholecystitis. Orders placed to evaluate differential diagnosis based on the above differential, HPI and physical exam EKG: Time 11:40 AM. Rate 73. Normal sinus rhythm, No ST-T changes, no ectopy, normal MT & QRS intervals, This was reviewed and interpreted by myself the ER physician at 11:45 AM Chest x-ray: Thoracic scoliosis. No acute process. No infiltrate. No pneumothorax. This was reviewed and interpreted by myself the emergency room physician. I also reviewed the radiology report. Lab Review: Laboratory results were reviewed and interpreted by myself the emergency room physician. No leukocytosis. No anemia. No renal failure. Urine does show signs of urinary tract infection. test negative. Initial troponin is positive at 62 with a delta of 66 at 2 hours at 125. I reviewed the patient's medical record. Reexamination: Patient remained stable. No increased work of breathing. No altered mental status. No focal motor deficits. Still with some mild chest pain. Consultation: I spoke with Dr. Duarte who is on-call for cardiology. He recommends Lovenox, Plavix and a stat echo. Consultation: I spoke with Dr. Tapia who is on-call for the hospitalist service who agrees to admission. Assessment and plan: Non-STEMI Chest pain Urinary tract ?600 mg p.o. Plavix. 70 mg Lovenox subcutaneous. Nitroglycerin. Echo ordered. - IV Rocephin for UTI. ? I discussed the patient with the hospitalist on-call who is admitting the patient. - Discussed findings and plan with patient. Answered any questions. - All laboratory values were reviewed and interpreted personally by myself, the ER physician - All imaging was reviewed and interpreted personally by myself, the ER physician. - Evaluation and treatment of this problem were appropriate in the emergency setting Lab Data 02/24/25 12:08 02/24/25 12:08 Radiology Impressions Chest X-Ray 02/24/25 11:45 IMPRESSION: No acute findings. Laboratory Results WBC 6.98 10^3/uL (3.29-11.43) 02/24/25 12:08 RBC 4.57 10^6/uL (3.85-5.65) 02/24/25 12:08 Hgb 14.50 g/dL (11.27-16.99) 02/24/25 12:08 Hct 42.4 % (36-47) 02/24/25 12:08 MCV 92.8 fl (85-98) 02/24/25 12:08 MCH 31.7 pg (27-33) 02/24/25 12:08 MCHC 34.2 g/dL (30-55) 02/24/25 12:08 RDW 12.3 % (12.1-15.1) 02/24/25 12:08 Plt Count 316 10^3/cmm (157-399) 02/24/25 12:08 MPV 9.7 fL (7.4-10.4) 02/24/25 12:08 Neut % (Auto) 65.2 % 02/24/25 12:08 Lymph % (Auto) 26.2 % 02/24/25 12:08 [place] % (Auto) 6.6 % 02/24/25 12:08 Eos % (Auto) 1.3 % 02/24/25 12:08 Baso % (Auto) 0.6 % 02/24/25 12:08 Neut # (Auto) 4.55 10^3/uL (1.8-7.7) 02/24/25 12:08 Lymph # (Auto) 1.8 10^3/uL (0.8-4.8) 02/24/25 12:08 [place] # (Auto) 0.5 10^3/uL (0.2-0.9) 02/24/25 12:08 Eos # (Auto) 0.1 10^3/uL (0.0-0.8) 02/24/25 12:08 Baso # (Auto) 0.0 10^3/uL (0.0-0.1) 02/24/25 12:08 Nucleated RBC % (auto) 0 % 02/24/25 12:08 Nucleated RBCs # 0.0 /100WBC 02/24/25 12:08 D-Dimer <= 0.27 ug/mLFEU (0-0.59) 02/24/25 12:08 Sodium 139 mmol/L (136-145) 02/24/25 12:08 Potassium 4.1 mmol/L (3.5-5.1) 02/24/25 12:08 Chloride 103 mmol/L (98-107) 02/24/25 12:08 Carbon Dioxide 25 mmol/L (22-29) 02/24/25 12:08 Anion Gap 15.1 (5-19) 02/24/25 12:08 BUN 5 mg/dL (6-20) L 02/24/25 12:08 Creatinine 0.6 mg/dL (0.5-0.9) 02/24/25 12:08 GFR Calculation 114.4 mL/min (90-130) 02/24/25 12:08 Glucose 91 mg/dL (65-115) 02/24/25 12:08 Calculated Osmolality 285 mOsm/kg (285-295) 02/24/25 12:08 Calcium 9.5 mg/dL (8.5-10.5) 02/24/25 12:08 Total Bilirubin 0.3 mg/dL (0.15-1.2) 02/24/25 12:08 AST 17 U/L (0-32) 02/24/25 12:08 ALT 15 U/L (0-33) 02/24/25 12:08 Alkaline Phosphatase 95 U/L (35-105) 02/24/25 12:08 Troponin T Baseline 62 ng/L (0-10) H 02/24/25 12:08 Troponin T 120 Minute 128.0 ng/L (0-10) H 02/24/25 13:21 Delta Troponin T 66.0 ABS# (0-10) H* 02/24/25 13:21 Total Protein 7.0 g/dL (6.6-8.7) 02/24/25 12:08 Albumin 4.3 g/dL (3.5-5.2) 02/24/25 12:08 Globulin 2.7 g/dL (1.3-4.6) 02/24/25 12:08 HCG, Qual Negative (Negative) 02/24/25 12:05 Urine Color Yellow (Yellow) 02/24/25 12:05 Urine Appearance Clear (CLEAR) 02/24/25 12:05 Urine pH 5.5 (5-7) 02/24/25 12:05 Ur Specific [place] 1.005 (1.005-1.030) 02/24/25 12:05 Urine Protein Negative (Negative) 02/24/25 12:05 Urine Glucose (UA) Negative (Normal) 02/24/25 12:05 Urine Ketones Negative (Negative) 02/24/25 12:05 Urine Blood 2+ (Negative) A 02/24/25 12:05 Urine Nitrate Negative (Negative) 02/24/25 12:05 Urine Bilirubin Negative (Negative) 02/24/25 12:05 Urine Urobilinogen 0.2 mg/dL (Negative) 02/24/25 12:05 Ur Leukocyte Esterase 1+ (Negative) A 02/24/25 12:05 Urine RBC 3-5 /hpf (0-2) 02/24/25 12:05 Urine WBC 11-20 /hpf (0-5) H 02/24/25 12:05 Ur Squamous Epith Cells 11-20 /hpf (0-5) H 02/24/25 12:05 Amorphous Sediment Not Reportable 02/24/25 12:05 Urine Bacteria 1+ /hpf (NONE) H 02/24/25 12:05 Hyaline Casts 0.81 /lpf 02/24/25 12:05 Urine Opiates Screen Negative ng/mL (Negative) 02/24/25 12:05 Ur Barbiturates Screen Negative ng/mL (Negative) 02/24/25 12:05 Ur Phencyclidine Scrn Negative ng/mL (Negative) 02/24/25 12:05 Ur Amphetamines Screen Negative ng/mL (Negative) 02/24/25 12:05 U Benzodiazepines Scrn Negative ng/mL (Negative) 02/24/25 12:05 Urine Cocaine Screen Negative ng/mL (Negative) 02/24/25 12:05 U Marijuana (THC) Screen Negative ng/mL (Negative) 02/24/25 12:05 All radiology interpretation(s) finalized by discharge Discharge Plan Discharge Condition: Stable Prescriptions: No Action albuterol sulfate 2.5 mg /3 mL (0.083 %) solution for nebulization 2.5 mg inhalation Q4H PRN (Reason: shortness of breath or wheezing) Qty: 90 0RF Referrals: Courtney Gaona FNP-C [Primary Care Provider, Dermatology] Print Language: Indonesian Coding Level of Care Code ED Environmental Health Physician for Kamran Lauren
[2025-02-24 12:14] LABS: Basophils % 0.6 %; Eosinophils # 0.1 10^3/uL (0.0-0.8); Eosinophils % 1.3 %; Hematocrit 42.4 % (36-47); Lymphocytes # 1.8 10^3/uL (0.8-4.8); Lymphocytes % 26.2 %; Mean Corpuscular HGB Conc 34.2 g/dL (30-55); Mean Corpuscular Hemoglobin 31.7 pg (27-33); Mean Corpuscular Volume 92.8 fl (85-98); Mean Platelet Volume 9.7 fL (7.4-10.4); Monocytes # 0.5 10^3/uL (0.2-0.9); Monocytes % 6.6 %; Neutrophils # 4.55 10^3/uL (1.8-7.7); Neutrophils % 65.2 %; Nucleated Red Blood Cells % 0 %; Platelet Count 316 10^3/cmm (157-399); Red Blood Count 4.57 10^6/uL (3.85-5.65); Red Cell Distribution Width 12.3 % (12.1-15.1); White Blood Count 6.98 10^3/uL (3.29-11.43)
[2025-02-24 12:20] LABS: HCG Qualitative Urine. Negative (Negative)
[2025-02-24 12:29] LABS: D Dimer <= 0.27 ug/mLFEU (0-0.59)
[2025-02-24 12:34] LABS: Alanine Aminotransferase 15 U/L (0-33); Albumin Level 4.3 g/dL (3.5-5.2); Alkaline Phosphatase 95 U/L (35-105); Aspartate Amino Transferase 17 U/L (0-32); Blood Urea Nitrogen 5 mg/dL (6-20); Calcium 9.5 mg/dL (8.5-10.5); Carbon Dioxide 25 mmol/L (22-29); Chloride 103 mmol/L (98-107); Creatinine Clr Calc Pharmacy 137.6319; Globulin 2.7 g/dL (1.3-4.6); Glomerular Filtration Rate 114.4 mL/min (90-130); Glucose 91 mg/dL (65-115); Osmolality Calculated 285 mOsm/kg (285-295); Sodium 139 mmol/L (136-145); Total Bilirubin 0.3 mg/dL (0.15-1.2)
[2025-02-24 12:35] LABS: Bilirubin Urine Negative (Negative); Blood Urine 2+ (Negative); Glucose Urine UA Negative (Normal); Ketones Urine Negative (Negative); Leukocyte Esterase Urine 1+ (Negative); Nitrate Urine Negative (Negative); Protein Urine Negative (Negative); Specific Gravity, Urine 1.005 (1.005-1.030); Urine Appearance Clear (CLEAR); Urine Color Yellow (Yellow); Urobilinogen Urine 0.2 mg/dL (Negative); pH Urine 5.5 (5-7)
[2025-02-24 12:36] LABS: Troponin(5th) Baseline 62 ng/L (0-10)
[2025-02-24 12:40] LABS: Anion Gap 15.1 (5-19); Potassium 4.1 mmol/L (3.5-5.1)
[2025-02-24 12:40] LABS: Bacteria Urine 1+ /hpf; Hyaline Casts Urine 0.81 /lpf
[2025-02-24 12:42] LABS: Amphetamines Screen Urine Negative (Negative); Barbiturates Screen Urine Negative (Negative); Benzodiazepines Screen Urine Negative (Negative); Cocaine Screen Urine Negative (Negative); Opiate Screen Urine Negative (Negative); PCP Screen Urine Negative (Negative); THC Screen Urine Negative (Negative)
[2025-02-24] MEDS: cefTRIAXone 1,000 mg SDV 1000 MG IVP (13:08)
--- NOTE | 2025-02-24 13:18 | ECG_ITS ---
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 Measurements Intervals [place] Rate: 57 P: 43 [place]: 155 QRS: 86 QRSD: 83 T: 58 QT: 454 QTc: 442 Interpretive Statements SINUS BRADYCARDIA POSSIBLE LEFT ATRIAL ENLARGEMENT [-0.1mV P-WAVE IN V1/V2] Compared to ECG 02/24/2025 11:40:30 Sinus rhythm no longer present Electronically Signed On 02-24-2025 21:21:34 CDT by Lilli Duarte M.D. [email or web address] [id number]
--- NOTE | 2025-02-24 13:59 | USCV_ITS ---
Nati Lemra Age: 34 Gender: F : 1990 Exam Date: 02/24/2025 14:17 Ordering Phys: Zeny Daly MD Technologist: Regulo Montoya Exam Location: [facility] [place] Indication: nonstemi BP: 130 / 79 HR: 53 Rhythm: Sinus Technical Quality: Adequate MEASUREMENTS (Male / Female) Normal Values 2D ECHO LV Diastolic Diameter PLAX 4.1 cm 4.2 - 5.9 / 3.9 - 5.3 cm IVS Diastolic Thickness 1.1 cm 0.6 - 1.0 / 0.6 - 0.9 cm IVS Systolic Thickness 1.5 cm LVPW Diastolic Thickness 1.0 cm 0.6 - 1.0 / 0.6 - 0.9 cm LVPW Systolic Thickness 1.5 cm LVOT Diameter 2.0 cm LV Ejection Fraction 2D Teich 76.5 % LV Ejection Fraction MOD 4C 65.3 % LV Ejection Fraction MOD 2C 72.4 % LV Ejection Fraction 2C AL 71.7 % LA Diameter 3.1 cm RA Systolic Volume 4C AL 36.1 ml RA Systolic Volume 4C MOD 37.5 ml Aorta at Sinotubular Diameter 1.5 cm IVC Diameter 1.5 cm M-MODE LA Ao Ratio MM 1.3 AV Cusp Separation MM 2.0 cm DOPPLER AV Peak Velocity 138.0 cm/s LVOT Peak Velocity 85.0 cm/s AV Area Cont Eq vti 2.2 cm squared AV Area Cont Eq pk 2.0 cm squared MV Peak Velocity 111.0 cm/s MV Area PHT 3.0 cm squared Mitral E to A Ratio 1.0 TV Peak Velocity 168.3 cm/s TR Peak Velocity 179.0 cm/s TR Peak Gradient 12.8 mmHg TR Mean Velocity 151.0 cm/s TR Mean Gradient 9.6 mmHg TR Velocity Time Integral 52.8 cm PV Peak Velocity 116.0 cm/s RV Ejection Time 0.3 s FINDINGS Left Ventricle Normal left ventricular size and systolic function, EF 65%.no regional wall motion abnormalities. Right Ventricle The right ventricle is normal in size and function. Right Atrium The right atrium is normal in size. Left Atrium The left atrium is normal in size. Mitral Valve No gross abnormalities noted Aortic Valve No gross abnormalities noted Tricuspid Valve Trace tricuspid valve regurgitation. Pulmonic Valve No gross abnormalities noted Pericardium Normal pericardium without effusion. Aorta Normal ascending aorta dimension. IVC Normal inferior vena cava. CONCLUSIONS Normal left ventricular size and systolic function, EF 65%.no regional wall motion abnormalities. Trace tricuspid valve regurgitation. Normal cardiac chamber sizes There is no pericardial effusion. There are no intracardiac masses. No similar previous studies are available for comparison Dr Lilli Duarte MD FACC (Electronically Signed) Final Date: 24 Feb 2025 17:33 S
[2025-02-24] MEDS: clopidogrel 300 mg Tablet PO (14:10)
[2025-02-24] MEDS: enoxaparin 80 mg/0.8 mL Syringe 70 MG SUBCUT (14:10)
[2025-02-24] MEDS: nitroglycerin 0.4 mg sublingual Tablet SUBLINGUAL (14:10)
--- NOTE | 2025-02-24 15:17 | PC.NURSE ---
received in to room 102 from er at 1505.report received.pt is alert and oriented x 4.sr/sb on monitor.denies any pain at all at present.oriented to room environment.instructed to notify staff for any sob,chest pain,numbness,or for any concerns at all.pt verb understanding of instructions
--- NOTE | 2025-02-24 16:39 | P.HP_ITS ---
Providers/Chief Complaint 2 Admitting Physician: Annita Tapia MD Primary Care Provider: WINDY BarcenasP-C Chief Complaint: chest pain, SOB History of Present Illness Nati Lerma is a 34 year old female with PMH chronic smoking > 1PPD, remote h/o IVDU, sober 5 years , p/w chest pain that started this morning. States that she started experiencing stabbing chest pain in the center of chest and also had right arm numbness associated with it. States it was getting worse with exertion. Relieved with nitro in the ER. She denies any known h/o CAD, HTN, DM or dyslipidemia, Hep C or HIV. no known rheumatolical disorders. Not currently on any hormonal contraceptives, Last 8 years ago. LMP 02/07 Review of Systems 2 General: Reports: 10 or more systems reviewed and unremarkable except in HPI and below Const: Denies: fever(s), chills or body aches Eyes: Denies: change in vision, blurry vision or photophobia ENMT: Reports: hoarseness; Denies: throat pain, enlarged tonsils, odynophagia or nasal congestion Card: Denies: chest pain, palpitations, irregular heart rhythm, edema, swelling of feet/ankles, lightheadedness, pre-syncope, dyspnea on exertion or orthopnea Resp: Denies: dyspnea, productive cough, non-productive cough, wheezing, stridor, pain on inspiration, change in phlegm color, hemoptysis or chest congestion GI: Denies: abdominal pain, nausea, vomiting, hematemesis, coffee ground emesis, dysphagia, heartburn, diarrhea, constipation, GI cramping, change in stool character, hematochezia or melena : Denies: flank pain, difficulty voiding, dysuria, urinary frequency, urinary urgency, urinary hesitancy or hematuria Musc: Denies: neck pain, back pain, extremity pain, joint swelling, joint warmth or deformity Neuro: Denies: headache(s), numbness in extremities, weakness in extremities, sensory changes, difficulty walking, frequent falls, dizziness, vertigo, behavioral changes, Slurred speech present or seizure-like activity Psych: Denies: anxiety, depression, suicidal ideation or homicidal ideation Endo: Denies: polyuria, polydipsia, tired all the time, cold intolerance or hot flashes Ministerio/Lymph: Denies: easy bruising or easy bleeding Medications/Allergies Home Medications ?Medication ?Instructions ?Recorded ?Confirmed ?Last Taken ?Type albuterol sulfate 2.5 mg/3 mL 2.5 mg (3 mL) inhalation Q4H PRN 11/06/24 02/24/25 Unknown Rx (0.083 %) solution for nebulization shortness of breat h or wheezing #90 mL Allergies Allergy/AdvReac Type Severity Reaction Status Date / Time ibuprofen Allergy Unknown Verified 02/24/25 11:46 PFSH Acute 2 PFSH: Medical History Ovulation pain History of ovarian cyst Asthma Fall Deltoid tendinitis of left shoulder Family History Grandfather Hypertension Stroke Grandmother Lung disease Stroke Mother Lung disease Denies family history of Colon cancer Ovarian cancer Diabetes Heart disease Breast cancer Uterine cancer Thyroid disease Social History Smoking and tobacco/nicotine status: never used tobacco/nicotine Vitals/I&O/Wt Last Vital Signs Temp 97.7 F 02/24/25 16:08 Pulse 69 02/24/25 16:08 Resp 28 H 02/24/25 16:08 BP 124/66 02/24/25 16:08 Pulse Ox 98 02/24/25 16:08 O2 Del Method Room Air 02/24/25 16:08 02/24/25 02/24/25 02/24/25 06:59 14:59 22:59 Output Total 200 / 200 Balance -200 / -200 Weight last 48 hrs Weight 76.43 kg Weight 72.575 kg Physical Exam 2 Narrative: General: No acute distress, AO x3 HEENT: PERRLA, pupils bilaterally equal and reactive, pallors not present Chest: Normal vesicular breath sounds, no added sounds, equal good air entry bilaterally CVS: S1-S2 regular, no murmurs, no tachycardia, no gallops, no rubs Abdomen: Soft, nontender, no organomegaly, bowel sounds present Neuro: No focal deficits, no facial deformity, AO x3, power 5/5 in all limbs Data 02/24/25 12:08 02/24/25 12:08 Other data: Radiology Impressions Chest X-Ray 02/24/25 11:45 IMPRESSION: No acute findings. Laboratory Results WBC 6.98 10^3/uL (3.29-11.43) 02/24/25 12:08 RBC 4.57 10^6/uL (3.85-5.65) 02/24/25 12:08 Hgb 14.50 g/dL (11.27-16.99) 02/24/25 12:08 Hct 42.4 % (36-47) 02/24/25 12:08 MCV 92.8 fl (85-98) 02/24/25 12:08 MCH 31.7 pg (27-33) 02/24/25 12:08 MCHC 34.2 g/dL (30-55) 02/24/25 12:08 RDW 12.3 % (12.1-15.1) 02/24/25 12:08 Plt Count 316 10^3/cmm (157-399) 02/24/25 12:08 MPV 9.7 fL (7.4-10.4) 02/24/25 12:08 Neut % (Auto) 65.2 % 02/24/25 12:08 Lymph % (Auto) 26.2 % 02/24/25 12:08 [place] % (Auto) 6.6 % 02/24/25 12:08 Eos % (Auto) 1.3 % 02/24/25 12:08 Baso % (Auto) 0.6 % 02/24/25 12:08 Neut # (Auto) 4.55 10^3/uL (1.8-7.7) 02/24/25 12:08 Lymph # (Auto) 1.8 10^3/uL (0.8-4.8) 02/24/25 12:08 [place] # (Auto) 0.5 10^3/uL (0.2-0.9) 02/24/25 12:08 Eos # (Auto) 0.1 10^3/uL (0.0-0.8) 02/24/25 12:08 Baso # (Auto) 0.0 10^3/uL (0.0-0.1) 02/24/25 12:08 Nucleated RBC % (auto) 0 % 02/24/25 12:08 Nucleated RBCs # 0.0 /100WBC 02/24/25 12:08 D-Dimer <= 0.27 ug/mLFEU (0-0.59) 02/24/25 12:08 Sodium 139 mmol/L (136-145) 02/24/25 12:08 Potassium 4.1 mmol/L (3.5-5.1) 02/24/25 12:08 Chloride 103 mmol/L (98-107) 02/24/25 12:08 Carbon Dioxide 25 mmol/L (22-29) 02/24/25 12:08 Anion Gap 15.1 (5-19) 02/24/25 12:08 BUN 5 mg/dL (6-20) L 02/24/25 12:08 Creatinine 0.6 mg/dL (0.5-0.9) 02/24/25 12:08 GFR Calculation 114.4 mL/min (90-130) 02/24/25 12:08 Glucose 91 mg/dL (65-115) 02/24/25 12:08 Calculated Osmolality 285 mOsm/kg (285-295) 02/24/25 12:08 Calcium 9.5 mg/dL (8.5-10.5) 02/24/25 12:08 Total Bilirubin 0.3 mg/dL (0.15-1.2) 02/24/25 12:08 AST 17 U/L (0-32) 02/24/25 12:08 ALT 15 U/L (0-33) 02/24/25 12:08 Alkaline Phosphatase 95 U/L (35-105) 02/24/25 12:08 Troponin T Baseline 62 ng/L (0-10) H 02/24/25 12:08 Troponin T 120 Minute 128.0 ng/L (0-10) H 02/24/25 13:21 Delta Troponin T 66.0 ABS# (0-10) H* 02/24/25 13:21 Total Protein 7.0 g/dL (6.6-8.7) 02/24/25 12:08 Albumin 4.3 g/dL (3.5-5.2) 02/24/25 12:08 Globulin 2.7 g/dL (1.3-4.6) 02/24/25 12:08 HCG, Qual Negative (Negative) 02/24/25 12:05 Urine Color Yellow (Yellow) 02/24/25 12:05 Urine Appearance Clear (CLEAR) 02/24/25 12:05 Urine pH 5.5 (5-7) 02/24/25 12:05 Ur Specific [place] 1.005 (1.005-1.030) 02/24/25 12:05 Urine Protein Negative (Negative) 02/24/25 12:05 Urine Glucose (UA) Negative (Normal) 02/24/25 12:05 Urine Ketones Negative (Negative) 02/24/25 12:05 Urine Blood 2+ (Negative) A 02/24/25 12:05 Urine Nitrate Negative (Negative) 02/24/25 12:05 Urine Bilirubin Negative (Negative) 02/24/25 12:05 Urine Urobilinogen 0.2 mg/dL (Negative) 02/24/25 12:05 Ur Leukocyte Esterase 1+ (Negative) A 02/24/25 12:05 Urine RBC 3-5 /hpf (0-2) 02/24/25 12:05 Urine WBC 11-20 /hpf (0-5) H 02/24/25 12:05 Ur Squamous Epith Cells 11-20 /hpf (0-5) H 02/24/25 12:05 Amorphous Sediment Not Reportable 02/24/25 12:05 Urine Bacteria 1+ /hpf (NONE) H 02/24/25 12:05 Hyaline Casts 0.81 /lpf 02/24/25 12:05 Urine Opiates Screen Negative ng/mL (Negative) 02/24/25 12:05 Ur Barbiturates Screen Negative ng/mL (Negative) 02/24/25 12:05 Ur Phencyclidine Scrn Negative ng/mL (Negative) 02/24/25 12:05 Ur Amphetamines Screen Negative ng/mL (Negative) 02/24/25 12:05 U Benzodiazepines Scrn Negative ng/mL (Negative) 02/24/25 12:05 Urine Cocaine Screen Negative ng/mL (Negative) 02/24/25 12:05 U Marijuana (THC) Screen Negative ng/mL (Negative) 02/24/25 12:05 A&P Assessment and plan (1) NSTEMI (non-ST elevated myocardial infarction): Patient presenting with chest pain and elevated troponins going up at 2 hrs EKG without acute ST-T wave changes Echo taken in ER and pending start lovnox 1mg/kg every 12 hrs s/c ASA 325 given in ER, continue 81mg po daily Plavix loading dose given in ED start atorvastatin 40mg daily Cardiac diet for now NPO post midnight in case of angiogram vs stress test depending on results fof 6 hr troponin and echocardiogra m screening Hba1c, tsh, lipid panel JENNIFER panel given young age at onset Smoking cessation counselling provided. cardiology consulted Plan dvt ppx: full dose lovenox will suffice Full code PDMP PDMP Reviewed: Not Reviewed Attestations 2 Medical Necessity Statement*: > 2 midnight stay anticipated for NSTEMI Coding Level of Care Code Acute Code for [facility] Diagnoses NSTEMI (non-ST elevated myocardial infarction) I21.4
[2025-02-24 16:55] LABS: Estmated Average Glucose 85; Hemoglobin A1C 4.6 % (4.0-6.0)
[2025-02-24 17:04] LABS: Chol HDL Ratio 3.43 mg/dL (0.0-4.40); Cholesterol 151 mg/dL (0-200); HDL Cholesterol 44 mg/dL (60-100); LDL Cholesterol Calculated 84 mg/dL (50-129); LDL HDL Ratio 1.91 RATIO (0.00-3.22); Thyroid Stimulating Hormone 0.92 uIU/mL (0.27-4.20); Triglycerides 116 mg/dL (0-150)
--- NOTE | 2025-02-24 17:45 | ECG_ITS ---
[facility] Test Date: 2025-02-24 Pat Name: Nati Lerma Department: Room: 102 Gender: Female Line Director: : 1990 Requested By: Zeny Hernandez Order Number: [id number] Maryjane MD: Lilli Duarte M.D. Measurements Intervals [place] Rate: 55 P: 12 NC: 148 QRS: 50 QRSD: 89 T: 45 QT: 452 QTc: 433 Interpretive Statements SINUS BRADYCARDIA WITH MARKED SINUS ARRHYTHMIA Poor R wave progression POSSIBLE LEFT ATRIAL ENLARGEMENT [-0.1mV P-WAVE IN V1/V2] Compared to ECG 02/24/2025 13:18:03 No significant changes Electronically Signed On 02-24-2025 21:20:05 CDT by Lilli Duarte M.D. [email or web address]
--- NOTE | 2025-02-24 19:03 | P.CONIM_ITS ---
Providers/Reason For Consult 2 Consulting Physician/Specialty*: RITCHIE Duarte MD/cardiology Reason for Consult*: Patient with chest pain/elevated troponin T Requesting Physician: Dr Fredis Tapia Attending Physician: Annita Tapia MD Primary Care Provider: TAVON Barcenas-Damian History of Present Illness History of Present Illness Nati Lerma is a 34 year old female with no significant past medical history, is admitted to the hospital through the emergency room. She presents with complaints of chest pain. She was found to have elevated troponin T. Cardiology consult is requested for further cardiac evaluation and recommendations. Apparently this patient has been at her baseline state of health up until 8:00 this morning when she woke up with chest pain. The pain was on the left side of the chest, radiated to the right shoulder and to the right thumb. She had associated tingling, nausea and shortness of breath. No palpitation, dizziness or syncopal episode. No sweating. No other associated symptoms or radiation of pain. The pain was severe in intensity, 10/10. It was getting worse with the movements. She also was getting somewhat dizzy with the activities. Because of the persistence of the symptoms, she was brought to the emergency room by her . In the emergency room, she was given sublingual nitro, oxygen by nasal cannula and other symptomatic measures. The symptoms gradually subsided. At the time of my examination, patient is pain-free. She had an episode of pain, since being in the room. It lasted only for a minute or so and then gradually subsided. Patient has no previous history for any coronary disease, myocardial infarction or congestive heart failure. No hypertension or dyslipidemia. She has a history of bipolar disorder. Currently she is not given any medications. No unusual stress at home. No significant stressful events in the recent past. She smokes marijuana and had used meth in the past. She quit methamphetamine 5 years ago. She has not smoked marijuana for a month or so. No alcohol abuse or any other substance abuse. Her both maternal grandparents had heart attacks in their 60s. No history for any premature atherosclerotic heart diseas. No other significant family history. Her baseline troponin T was 66 and had a 2-hour delta of 62. Review of Systems 2 Narrative: CONSTITUTIONAL: No fever or chills. EYES: No blurring of vision or other visual disturbances lately. ENT: No hoarseness of voice, auditory disturbances or sore throat. CARDIOVASCULAR: As mentioned above. RESPIRATORY: No significant cough. GASTROINTESTINAL: No hematemesis or melena. GENITOURINARY: No dysuria or hematuria. INTEGUMENTARY: No skin rashes or history of skin cancer. NEURO: No transient ischemic attacks or amaurosis. PSYCHIATRIC: No history of psychosis or major depression. HEMATOLOGIC: No bleeding disorders or significant anemia. ENDOCRINE: No history of polyuria or polydipsia. MUSCULOSKELETAL: No recent joint pain or swelling. ALLERGY/IMMUNOLOGY: As mentioned above. Medications/Allergies Home Medications ?Medication ?Instructions ?Recorded ?Confirmed ?Last Taken ?Type albuterol sulfate 2.5 mg/3 mL 2.5 mg (3 mL) inhalation Q4H PRN 11/06/24 02/24/25 Unknown Rx (0.083 %) solution for nebulization shortness of breat h or wheezing #90 mL Allergies Allergy/AdvReac Type Severity Reaction Status Date / Time ibuprofen Allergy Unknown Verified 02/24/25 11:46 PFSH Acute 2 PFSH: Medical History Ovulation pain History of ovarian cyst Asthma Fall Deltoid tendinitis of left shoulder Family History Grandfather Hypertension Stroke Grandmother Lung disease Stroke Mother Lung disease Denies family history of Colon cancer Ovarian cancer Diabetes Heart disease Breast cancer Uterine cancer Thyroid disease Social History Smoking and tobacco/nicotine status: never used tobacco/nicotine Vitals/I&O/Wt Last Vital Signs Temp 97.7 F 02/24/25 16:08 Pulse 72 02/24/25 16:40 Resp 28 H 02/24/25 16:40 BP 124/66 02/24/25 16:40 Pulse Ox 97 02/24/25 16:40 O2 Del Method Room Air 02/24/25 16:08 02/24/25 02/24/25 02/24/25 06:59 14:59 22:59 Intake Total 360 / 360 Output Total 200 / 200 Balance 160 / 160 Weight last 48 hrs Weight 168 lb 8 oz Weight 160 lb Physical Exam 2 Narrative: GENERAL: The patient is alert and oriented times three. Not in any acute distress. HEENT: No significant pallor, icterus or lymphadenopathy.Oral cavity: There are no mucous membrane lesions. NECK: Trachea appears to be central. No masses noted. No JVD or thyromegaly appreciated. RESPIRATORY: Chest is symmetrical. No intercostals muscle retraction or any accessory muscle activation. There is no chest wall tenderness. Breath sounds are heard bilaterally. No rales or rhonchi heard. No evidence of any consolidation. BREASTS: Deferred. HEART: The heart sounds are normal. No S3 or S4. No significant murmurs. No pericardial rub ABDOMEN: No vessel pulsations or distention. No tenderness. No organomegaly appreciated. Bowel sounds are normally heard. : Deferred. RECTAL: Deferred. LYMPHATIC: No lymphadenopathy noted in the neck. EXTREMITIES: No edema or cyanosis. No clubbing. MUSCULOSKELETAL: No acute joint deformities or swelling SKIN: There are no significant rashes or ecchymosis NEUROPSYCHIATRIC: The patient is alert and oriented x3. Appears to be in a good mood. No tremors or rigidity noted. Data 02/24/25 12:08 02/24/25 12:08 Other Labs: Laboratory Last Values WBC 6.98 10^3/uL (3.29-11.43) 02/24/25 12:08 RBC 4.57 10^6/uL (3.85-5.65) 02/24/25 12:08 Hgb 14.50 g/dL (11.27-16.99) 02/24/25 12:08 Hct 42.4 % (36-47) 02/24/25 12:08 MCV 92.8 fl (85-98) 02/24/25 12:08 MCH 31.7 pg (27-33) 02/24/25 12:08 MCHC 34.2 g/dL (30-55) 02/24/25 12:08 RDW 12.3 % (12.1-15.1) 02/24/25 12:08 Plt Count 316 10^3/cmm (157-399) 02/24/25 12:08 MPV 9.7 fL (7.4-10.4) 02/24/25 12:08 Neut % (Auto) 65.2 % 02/24/25 12:08 Lymph % (Auto) 26.2 % 02/24/25 12:08 [place] % (Auto) 6.6 % 02/24/25 12:08 Eos % (Auto) 1.3 % 02/24/25 12:08 Baso % (Auto) 0.6 % 02/24/25 12:08 Neut # (Auto) 4.55 10^3/uL (1.8-7.7) 02/24/25 12:08 Lymph # (Auto) 1.8 10^3/uL (0.8-4.8) 02/24/25 12:08 [place] # (Auto) 0.5 10^3/uL (0.2-0.9) 02/24/25 12:08 Eos # (Auto) 0.1 10^3/uL (0.0-0.8) 02/24/25 12:08 Baso # (Auto) 0.0 10^3/uL (0.0-0.1) 02/24/25 12:08 Nucleated RBC % (auto) 0 % 02/24/25 12:08 Nucleated RBCs # 0.0 /100WBC 02/24/25 12:08 D-Dimer <= 0.27 ug/mLFEU (0-0.59) 02/24/25 12:08 Sodium 139 mmol/L (136-145) 02/24/25 12:08 Potassium 4.1 mmol/L (3.5-5.1) 02/24/25 12:08 Chloride 103 mmol/L (98-107) 02/24/25 12:08 Carbon Dioxide 25 mmol/L (22-29) 02/24/25 12:08 Anion Gap 15.1 (5-19) 02/24/25 12:08 BUN 5 mg/dL (6-20) L 02/24/25 12:08 Creatinine 0.6 mg/dL (0.5-0.9) 02/24/25 12:08 GFR Calculation 114.4 mL/min (90-130) 02/24/25 12:08 Glucose 91 mg/dL (65-115) 02/24/25 12:08 Estimat Average Glucose 85 02/24/25 12:08 Hemoglobin A1c 4.6 % (4.0-6.0) 02/24/25 12:08 Calculated Osmolality 285 mOsm/kg (285-295) 02/24/25 12:08 Calcium 9.5 mg/dL (8.5-10.5) 02/24/25 12:08 Total Bilirubin 0.3 mg/dL (0.15-1.2) 02/24/25 12:08 AST 17 U/L (0-32) 02/24/25 12:08 ALT 15 U/L (0-33) 02/24/25 12:08 Alkaline Phosphatase 95 U/L (35-105) 02/24/25 12:08 Troponin T Baseline 62 ng/L (0-10) H 02/24/25 12:08 Troponin T 120 Minute 128.0 ng/L (0-10) H 02/24/25 13:21 Delta Troponin T 66.0 ABS# (0-10) H* 02/24/25 13:21 Total Protein 7.0 g/dL (6.6-8.7) 02/24/25 12:08 Albumin 4.3 g/dL (3.5-5.2) 02/24/25 12:08 Globulin 2.7 g/dL (1.3-4.6) 02/24/25 12:08 Triglycerides 116 mg/dL (0-150) 02/24/25 12:08 Cholesterol 151 mg/dL (0-200) 02/24/25 12:08 LDL Cholesterol, Calc 84 mg/dL (50-129) 02/24/25 12:08 HDL Cholesterol 44 mg/dL (60-100) L 02/24/25 12:08 LDL/HDL Ratio 1.91 RATIO (0.00-3.22) 02/24/25 12:08 Cholesterol/HDL Ratio 3.43 mg/dL (0.0-4.40) 02/24/25 12:08 TSH 0.92 uIU/mL (0.27-4.20) 02/24/25 12:08 HCG, Qual Negative (Negative) 02/24/25 12:05 Urine Color Yellow (Yellow) 02/24/25 12:05 Urine Appearance Clear (CLEAR) 02/24/25 12:05 Urine pH 5.5 (5-7) 02/24/25 12:05 Ur Specific [place] 1.005 (1.005-1.030) 02/24/25 12:05 Urine Protein Negative (Negative) 02/24/25 12:05 Urine Glucose (UA) Negative (Normal) 02/24/25 12:05 Urine Ketones Negative (Negative) 02/24/25 12:05 Urine Blood 2+ (Negative) A 02/24/25 12:05 Urine Nitrate Negative (Negative) 02/24/25 12:05 Urine Bilirubin Negative (Negative) 02/24/25 12:05 Urine Urobilinogen 0.2 mg/dL (Negative) 02/24/25 12:05 Ur Leukocyte Esterase 1+ (Negative) A 02/24/25 12:05 Urine RBC 3-5 /hpf (0-2) 02/24/25 12:05 Urine WBC 11-20 /hpf (0-5) H 02/24/25 12:05 Ur Squamous Epith Cells 11-20 /hpf (0-5) H 02/24/25 12:05 Amorphous Sediment Not Reportable 02/24/25 12:05 Urine Bacteria 1+ /hpf (NONE) H 02/24/25 12:05 Hyaline Casts 0.81 /lpf 02/24/25 12:05 Urine Opiates Screen Negative ng/mL (Negative) 02/24/25 12:05 Ur Barbiturates Screen Negative ng/mL (Negative) 02/24/25 12:05 Ur Phencyclidine Scrn Negative ng/mL (Negative) 02/24/25 12:05 Ur Amphetamines Screen Negative ng/mL (Negative) 02/24/25 12:05 U Benzodiazepines Scrn Negative ng/mL (Negative) 02/24/25 12:05 Urine Cocaine Screen Negative ng/mL (Negative) 02/24/25 12:05 U Marijuana (THC) Screen Negative ng/mL (Negative) 02/24/25 12:05 EKG 1: My Interpretation: Sinus bradycardia with a rate of 53 bpm. History of sinus arrhythmia. Possible left atrial enlargement. No significant ST-T changes. Other data: Echocardiogram from today Normal left ventricular size and systolic function, EF 65%.no regional wall motion abnormalities. Trace tricuspid valve regurgitation. Normal cardiac chamber sizes There is no pericardial effusion. There are no intracardiac masses. No similar previous studies are available for comparison A&P Assessment and plan (1) Elevated troponin: The elevated troponin T is suggestive of a non-ST elevation myocardial infarction. EKG does not reveal any acute ST-T changes. The echocardiogram also is unremarkable. (2) Chest pain: Her chest pain radiated to the right shoulder and to the left right may have sized unstable angina. Hemodynamically she seems to be stable. Possibility of underlying coronary artery disease causing this is a strong consideration. This needs to be further evaluated. Her lipid profile looks good. The TSH also is within normal limits. Plan Other problems are Possible UTI History of substance abuse not active at this point History of bipolar disorder History of? Peptic ulcer disease currently stable ? History of reactive airway disease, currently stable Serial cardiac enzymes and EKGs would be appropriate. Patient may be started on subcu Lovenox, aspirin p.o., Plavix, low-dose of beta- ethan, statin and other symptomatic measures She may benefit from a cardiac catheterization to further evaluate the coronary status and decide on further management. Based on the clinical progress, further recommendations will be made. May keep her n.p.o. after midnight Thank you for the opportunity to evaluate this patient and make these recommendations. PDMP PDMP Reviewed: Not Reviewed Coding Level of Care Code 79022 Diagnoses Elevated troponin R79.89 Chest pain, unspecified type R07.9 Chest pain type: unspecified
[2025-02-24] MEDS: morphine 4 mg/mL SDV 1 mL 2 MG IVP (19:04)
[2025-02-24 19:30] LABS: HIV 1 & 2 Antibody Non-Reactive (Non-Reactiv); HIV 1 & 2 Antigen Non-Reactive (Non-Reactiv); Troponin 5 6HR 610.2 ng/L (0-10); Troponin 5 6HR Delta 548.2 ng/L (0-12)
[2025-02-24 20:06] LABS: Hepatitis A Antibody IgM Non-Reactive (Nonreactive); Hepatitis B Core AB, Total Non-Reactive (Nonreactive); Hepatitis B Surface AB 13.2 (11.5-1000); Hepatitis B Surface Antigen Non-Reactive (Nonreactive); Hepatitis C Virus Antibody Non-Reactive (Nonreactive)
[2025-02-24] MEDS: atorvastatin 40 mg Tablet PO (20:20)
[2025-02-25] VITALS (8 sets, daily range): BP systolic 91–122; BP diastolic 51–92; PULSE 61–99; RESP 14–22; TEMP 36.7–37.2; O2SAT 93–97
[2025-02-25 06:05] LABS: Basophils % 0.7 %; Eosinophils # 0.1 10^3/uL (0.0-0.8); Eosinophils % 2.4 %; Hematocrit 39.3 % (36-47); Lymphocytes % 33.8 %; Mean Corpuscular HGB Conc 33.3 g/dL (30-55); Mean Corpuscular Hemoglobin 31.8 pg (27-33); Mean Corpuscular Volume 95.4 fl (85-98); Mean Platelet Volume 10.7 fL (7.4-10.4); Monocytes # 0.5 10^3/uL (0.2-0.9); Monocytes % 8.4 %; Neutrophils # 3.22 10^3/uL (1.8-7.7); Neutrophils % 54.4 %; Nucleated Red Blood Cells % 0 %; Platelet Count 229 10^3/cmm (157-399); Red Blood Count 4.12 10^6/uL (3.85-5.65); Red Cell Distribution Width 12.3 % (12.1-15.1); White Blood Count 5.92 10^3/uL (3.29-11.43)
[2025-02-25 06:37] LABS: Alanine Aminotransferase 13 U/L (0-33); Albumin Level 3.7 g/dL (3.5-5.2); Alkaline Phosphatase 69 U/L (35-105); Aspartate Amino Transferase 22 U/L (0-32); Blood Urea Nitrogen 6 mg/dL (6-20); Calcium 8.7 mg/dL (8.5-10.5); Carbon Dioxide 22 mmol/L (22-29); Chloride 103 mmol/L (98-107); Creatinine Clr Calc Pharmacy 141.9834; Globulin 2.6 g/dL (1.3-4.6); Glomerular Filtration Rate 114.4 mL/min (90-130); Glucose 86 mg/dL (65-115); Osmolality Calculated 285 mOsm/kg (285-295); Sodium 139 mmol/L (136-145); Total Bilirubin 0.3 mg/dL (0.15-1.2); Total Protein 6.3 g/dL (6.6-8.7)
[2025-02-25] MEDS: aspirin 81 mg EC Tablet PO (08:08)
[2025-02-25] MEDS: pantoprazole DR 40 mg Tablet PO (08:08)
--- NOTE | 2025-02-25 08:11 | P.PN_ITS ---
Subjective 2 Subjective: Patient is feeling okay. Has not had any chest pain through the night or this morning. The blood pressure has been soft. So had to hold off on the beta- ethan. The troponin T went up to 610 Medications: Medication Review Details: Current Medications Acetaminophen (Acetaminophen 325 Mg Tablet) 650 mg PO Q6H PRN PRN Reason: Mild/Mod Pain Or Temp >/= 101 Albuterol Sulfate (Albuterol 2.5 Mg/3 Ml Neb) 2.5 mg INHALATION Q4H.RESPIRATORY PRN PRN Reason: shortness of breath or wheezing Aspirin (Aspirin 81 Mg Ec Tablet) 81 mg PO DAILY COUNTS INCLUDE 234 BEDS AT THE [facility] Last Admin: 02/25/25 08:08 Dose: 81 mg Atorvastatin Calcium (Atorvastatin 40 Mg Tablet) 40 mg PO BEDTIME COUNTS INCLUDE 234 BEDS AT THE [facility] Last Admin: 02/24/25 20:20 Dose: 40 mg Enoxaparin Sodium (Enoxaparin 80 Mg/0.8 Ml Syringe) 80 mg SUBCUT Q12H COUNTS INCLUDE 234 BEDS AT THE [facility] Last Admin: 02/25/25 03:34 Dose: Not Given Morphine Sulfate (Morphine 4 Mg/Ml Sdv 1 Ml) 2 mg IVP Q4H PRN PRN Reason: SEVERE PAIN Last Admin: 02/24/25 19:04 Dose: 2 mg Naloxone HCl (Naloxone 0.4 Mg/Ml Sdv) 0.1 mg IVP Q2M PRN PRN Reason: OPIATERV Nitroglycerin (Nitroglycerin 0.4 Mg Sublingual Tablet) 0.4 mg SUBLINGUAL Q5M PRN PRN Reason: CHEST PAIN Ondansetron HCl (Ondansetron 2 Mg/Ml Sdv 2 Ml) 4 mg IVP Q8H PRN PRN Reason: vomiting, or N/V if npo Pantoprazole Sodium (Pantoprazole Dr 40 Mg Tablet) 40 mg PO DAILY COUNTS INCLUDE 234 BEDS AT THE [facility] Last Admin: 02/25/25 08:08 Dose: 40 mg Vitals/I&O/Wt Last Vital Signs Temp 98.9 F 02/25/25 07:50 Pulse 80 02/25/25 07:50 Resp 14 02/25/25 07:50 BP 91/51 02/25/25 07:50 Pulse Ox 97 02/25/25 07:50 O2 Del Method Room Air 02/25/25 07:50 02/24/25 02/25/25 02/25/25 22:59 06:59 14:59 Intake Total 360 / 360 Output Total 200 / 200 Balance 160 / 160 Weight last 48 hrs Weight 171 lb 8 oz Weight 168 lb 8 oz Weight 160 lb Physical Exam 2 Narrative: GENERAL: The patient is alert and oriented times three. Not in any acute distress. HEENT: No significant pallor, icterus or lymphadenopathy.Oral cavity: There are no mucous membrane lesions. NECK: Trachea appears to be central. No masses noted. No JVD or thyromegaly appreciated. RESPIRATORY: Chest is symmetrical. No intercostals muscle retraction or any accessory muscle activation. There is no chest wall tenderness. Breath sounds are heard bilaterally. No rales or rhonchi heard. No evidence of any consolidation. BREASTS: Deferred. HEART: The heart sounds are normal. No S3 or S4. No significant murmurs. No pericardial rub ABDOMEN: No vessel pulsations or distention. No tenderness. No organomegaly appreciated. Bowel sounds are normally heard. : Deferred. RECTAL: Deferred. LYMPHATIC: No lymphadenopathy noted in the neck. EXTREMITIES: No edema or cyanosis. No clubbing. MUSCULOSKELETAL: No acute joint deformities or swelling SKIN: There are no significant rashes or ecchymosis NEUROPSYCHIATRIC: The patient is alert and oriented x3. Appears to be in a good mood. No tremors or rigidity noted. Data 02/25/25 05:26 02/25/25 05:26 Other Labs: Laboratory Last Values WBC 5.92 10^3/uL (3.29-11.43) 02/25/25 05:26 RBC 4.12 10^6/uL (3.85-5.65) 02/25/25 05:26 Hgb 13.10 g/dL (11.27-16.99) 02/25/25 05:26 Hct 39.3 % (36-47) 02/25/25 05:26 MCV 95.4 fl (85-98) 02/25/25 05:26 MCH 31.8 pg (27-33) 02/25/25 05: MCHC 33.3 g/dL (30-55) 02/25/25 05:26 RDW 12.3 % (12.1-15.1) 02/25/25 05:26 Plt Count 229 10^3/cmm (157-399) 02/25/25 05:26 MPV 10.7 fL (7.4-10.4) H 02/25/25 05:26 Neut % (Auto) 54.4 % 02/25/25 05:26 Lymph % (Auto) 33.8 % 02/25/25 05:26 Smith % (Auto) 8.4 % 02/25/25 05:26 Eos % (Auto) 2.4 % 02/25/25 05:26 Baso % (Auto) 0.7 % 02/25/25 05:26 Neut # (Auto) 3.22 10^3/uL (1.8-7.7) 02/25/25 05:26 Lymph # (Auto) 2.0 10^3/uL (0.8-4.8) 02/25/25 05:26 Smith # (Auto) 0.5 10^3/uL (0.2-0.9) 02/25/25 05:26 Eos # (Auto) 0.1 10^3/uL (0.0-0.8) 02/25/25 05:26 Baso # (Auto) 0.0 10^3/uL (0.0-0.1) 02/25/25 05:26 Nucleated RBC % (auto) 0 % 02/25/25 05: Nucleated RBCs # 0.0 /100WBC 02/25/25 05:26 D-Dimer <= 0.27 ug/mLFEU (0-0.59) 02/24/25 12:08 Sodium 139 mmol/L (136-145) 02/25/25 05:26 Potassium 4.0 mmol/L (3.5-5.1) 02/25/25 05:26 Chloride 103 mmol/L (98-107) 02/25/25 05:26 Carbon Dioxide 22 mmol/L (22-29) 02/25/25 05:26 Anion Gap 18.0 (5-19) 02/25/25 05:26 BUN 6 mg/dL (6-20) 02/25/25 05:26 Creatinine 0.6 mg/dL (0.5-0.9) 02/25/25 05:26 GFR Calculation 114.4 mL/min (90-130) 02/25/25 05:26 Glucose 86 mg/dL (65-115) 02/25/25 05:26 Estimat Average Glucose 85 02/24/25 12:08 Hemoglobin A1c 4.6 % (4.0-6.0) 02/24/25 12:08 Calculated Osmolality 285 mOsm/kg (285-295) 02/25/25 05:26 Calcium 8.7 mg/dL (8.5-10.5) 02/25/25 05:26 Total Bilirubin 0.3 mg/dL (0.15-1.2) 02/25/25 05:26 AST 22 U/L (0-32) 02/25/25 05:26 ALT 13 U/L (0-33) 02/25/25 05:26 Alkaline Phosphatase 69 U/L (35-105) 02/25/25 05:26 Troponin T Baseline 62 ng/L (0-10) H 02/24/25 12:08 Troponin T 120 Minute 128.0 ng/L (0-10) H 02/24/25 13:21 Delta Troponin T 66.0 ABS# (0-10) H* 02/24/25 13:21 Troponin T Hi Sens 6Hr 610.2 ng/L (0-10) H 02/24/25 18:41 Troponin T Hi Sens 6Hr Delta 548.2 ng/L (0-12) H* 02/24/25 18:41 Total Protein 6.3 g/dL (6.6-8.7) L 02/25/25 05:26 Albumin 3.7 g/dL (3.5-5.2) 02/25/25 05:26 Globulin 2.6 g/dL (1.3-4.6) 02/25/25 05:26 Triglycerides 116 mg/dL (0-150) 02/24/25 12:08 Cholesterol 151 mg/dL (0-200) 02/24/25 12:08 LDL Cholesterol, Calc 84 mg/dL (50-129) 02/24/25 12:08 HDL Cholesterol 44 mg/dL (60-100) L 02/24/25 12:08 LDL/HDL Ratio 1.91 RATIO (0.00-3.22) 02/24/25 12:08 Cholesterol/HDL Ratio 3.43 mg/dL (0.0-4.40) 02/24/25 12:08 TSH 0.92 uIU/mL (0.27-4.20) 02/24/25 12:08 HCG, Qual Negative (Negative) 02/24/25 12:05 Urine Color Yellow (Yellow) 02/24/25 12:05 Urine Appearance Clear (CLEAR) 02/24/25 12:05 Urine pH 5.5 (5-7) 02/24/25 12:05 Ur Specific [place] 1.005 (1.005-1.030) 02/24/25 12:05 Urine Protein Negative (Negative) 02/24/25 12:05 Urine Glucose (UA) Negative (Normal) 02/24/25 12:05 Urine Ketones Negative (Negative) 02/24/25 12:05 Urine Blood 2+ (Negative) A 02/24/25 12:05 Urine Nitrate Negative (Negative) 02/24/25 12:05 Urine Bilirubin Negative (Negative) 02/24/25 12:05 Urine Urobilinogen 0.2 mg/dL (Negative) 02/24/25 12:05 Ur Leukocyte Esterase 1+ (Negative) A 02/24/25 12:05 Urine RBC 3-5 /hpf (0-2) 02/24/25 12:05 Urine WBC 11-20 /hpf (0-5) H 02/24/25 12:05 Ur Squamous Epith Cells 11-20 /hpf (0-5) H 02/24/25 12:05 Amorphous Sediment Not Reportable 02/24/25 12:05 Urine Bacteria 1+ /hpf (NONE) H 02/24/25 12:05 Hyaline Casts 0.81 /lpf 02/24/25 12:05 Urine Opiates Screen Negative ng/mL (Negative) 02/24/25 12:05 Ur Barbiturates Screen Negative ng/mL (Negative) 02/24/25 12:05 Ur Phencyclidine Scrn Negative ng/mL (Negative) 02/24/25 12:05 Ur Amphetamines Screen Negative ng/mL (Negative) 02/24/25 12:05 U Benzodiazepines Scrn Negative ng/mL (Negative) 02/24/25 12:05 Urine Cocaine Screen Negative ng/mL (Negative) 02/24/25 12:05 U Marijuana (THC) Screen Negative ng/mL (Negative) 02/24/25 12:05 Hepatitis A IgM Ab Non-reactive (Nonreactive) 02/24/25 18:41 Hep Bs Antigen Non-reactive (Nonreactive) 02/24/25 18:41 Hep Bs Antibody 13.2 (11.5-1000) 02/24/25 18:41 Hep B Core Total Ab Non-reactive (Nonreactive) 02/24/25 18:41 Hepatitis C Antibody Non-reactive (Nonreactive) 02/24/25 18:41 HIV 1&2 Ab & HIV 1 Ag Non-reactive (Non-Reactiv) 02/24/25 18:41 HIV 1&2 Antibody Non-reactive (Non-Reactiv) 02/24/25 18:41 A&P Assessment and plan (1) Elevated troponin: The elevated troponin T is suggestive of a non-ST elevation myocardial infarction. EKG does not reveal any acute ST-T changes. The echocardiogram also is unremarkable. The troponin T went up to 610 with a 6-hour delta of 548. I may do another troponin T this morning to see whether it is trending downwards. Also will do an EKG. (2) Chest pain: Currently patient is pain-free. The echocardiogram was unremarkable. Plan Other problems are Possible UTI, afebrile, normal white cell count. History of substance abuse not active at this point History of bipolar disorder History of? Peptic ulcer disease currently stable ? History of reactive airway disease, currently stable For further evaluation of the patient's coronary status, she requires a cardiac catheterization. The risks, benefits and alternatives were discussed. The risk of bleeding, hematoma, vascular injury, myocardial infarction, myocardial perforation, malignant cardiac arrhythmias ,CVA, renal failure and other concomitant complications were explained in detail. Patient understood this well and consented to proceed. EKG and troponin T today Since I am not going to be here for the rest of the week, I will be asking one of my colleagues to perform this procedure. Patient is agreeable for this. PDMP PDMP Reviewed: Not Reviewed Attestations 2 Medical Necessity Statement*: Patient requires continued hospital stay for close monitoring and further management Coding Level of Care Code Acute Code for Chg Fwd Diagnoses Elevated troponin R79.89 Chest pain, unspecified type R07.9 Chest pain type: unspecified
[2025-02-25] MEDS: clopidogrel 75 mg Tablet PO (08:46)
[2025-02-25] MEDS: ondansetron 2 mg/ML SDV 2 mL 4 MG IVP (09:02)
--- NOTE | 2025-02-25 09:02 | PC.CHAP ---
Pastoral Care Encounter/Spiritual Assessment Type of Contact [] Declined lap layer visit [] Patient/Family/Request visit [] Outpatient visit [] Follow-up visit [] Physician referral [] Code/Alert [x] Routine visit [] Staff referral [] Actively dying [] Patient sleeping [] Family support [] [] Out of room [] Palliative care [] [] Receiving care in room [] Pre-surgical visit [] Trauma [] Long length of stay [] ICU visit [] Other: Relational/Emotional Strength [] Patient feels connected with others/family/visitors/staff [] Distress [] Loneliness/isolation [] Abandonment Spirituality of Patient [x] Person of Torie [] Attends Yazidism of their Torie [x] Believes in Prayer [] Reads Bible or Mandaen materials [] There are Spiritual issues to be addressed 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 Interventions [x] Prayer [x] Active listening [] Non-anxious presence [] Spiritual/emotional support [] Crisis/trauma care [] Spiritual counseling [] Bereavement support [] Provided bereavement packet [x] Provided Bible/devotional materials [] Provided toy/stuffed animal, coloring book to patient or family member [] Provided Communion [] Anointing/[place] [] Salvation [x] Completed spiritual assessment [] Other: Impact on Illness or Injury [] Angry [] Fearful [] Anxious [] Often cries [] Exhaustion [] Unable to work [] Unable to attend restoration [] Unable to walk/stand [] Unable to read [] Unable to drive [] Unable to eat/drink [] Unable to sleep [] Unable to be with family [] Patient intubated [] Other: Summary Time spent with patient 5 min
[2025-02-25 10:13] LABS: Troponin T (5th) Once 325 ng/L (0-10)
--- NOTE | 2025-02-25 11:49 | PC.NURSE ---
Dr Elliott a nicotine 21 mg patch, okay to apply prior to slab inspector.
--- NOTE | 2025-02-25 11:55 | ECG_ITS ---
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 Measurements Intervals [place] Rate: 55 P: 5 [place]: 152 QRS: 67 QRSD: 91 T: 48 QT: 468 QTc: 449 Interpretive Statements SINUS BRADYCARDIA POSSIBLE LEFT ATRIAL ENLARGEMENT [-0.1mV P-WAVE IN V1/V2] Compared to ECG 02/24/2025 17:46:53 Sinus arrhythmia no longer present Poor R-wave progression no longer present Electronically Signed On 02-25-2025 15:18:21 CDT by Lilli Duarte M.D. [email or web address]
[2025-02-25] MEDS: nicotine 21 mg Patch 1 PATCH TRANSDERMA (11:58)
--- NOTE | 2025-02-25 13:05 | PC.NURSE ---
supervisor labor gang here to take patient off unit at 1305.
--- NOTE | 2025-02-25 13:20 | W.PM.OPSUD ---
Surgery/Procedure H&P Update DATE OF PROCEDURE: February 25, 2025 DATE H&P PERFORMED: 02/24/25 H&P UPDATE INFORMATION: I have reviewed H&P completed within last 30 days, I have examined patient prior to procedure and No changes to prior documentation PREOP DIAGNOSIS: [id number] VT PLANNED PROCEDURE: Operation Date: 02/25/25 11:30 Proposed Procedures p Cardiac Catheterization(Left) - Cathie Elliott MD PATIENT REASSESSED PRIOR TO SEDATION, WITH NO CHANGE NOTED: Yes PHYSICAL EXAM: alert, oriented x 3, clear to auscultation bilaterally, regular rate & rhythm and operative site marked AIRWAY EVAL/ANESTHESIA PLAN: ASA II, Risks, benefits & alternatives of sedation and/or procedure discussed and Patient agrees to continue as planned
--- NOTE | 2025-02-25 13:49 | PM.PROC ---
Procedure Note: Date of procedure: 02/25/25 Pre-procedure diagnosis: [id number] M Post-procedure diagnosis: same Procedure: Left heart cath was performed for non-ST elevation DC Left main: Normal LAD: Normal RCA: Normal Left circumflex: Normal Left ventricle ejection fraction normal 65% no wall motion abnormality. Plan: IV fluid 100 mL/h until bedrest for next 3 hours Right wrist band as per protocol Diagnosis most likely myopericarditis in the absence of wall motion abnormality and U-Tox negative Coding Level of Care Code Acute Code for Kamran Lauren
--- NOTE | 2025-02-25 14:20 | P.DS_ITS ---
Discharge Providers Date of Admission: 02/24/25 14:21 Date of Discharge: February 25, 2025 Attending Provider at Admission: Annita Tapia MD Attending Provider at Discharge: Annita Tapia MD Primary Care Provider: DHAVAL Barcenas Diagnoses at Discharge Discharge Diagnosis (1) Elevated troponin: Status: Acute (2) Chest pain: Status: Acute Qualifiers: Chest pain type: unspecified Qualified Code(s): R07.9 - Chest pain, unspecified Reason for Visit Reason for Visit: chest pain, SOB Brief History: Nati Lerma is a 34 year old female with PMH chronic smoking > 1PPD, remote h/o IVDU, sober 5 years , presenting with chest pain States that she started experiencing stabbing chest pain in the center of chest and also had right arm numbness associated with it. States it was getting worse with exertion. Relieved with nitro in the ER. EKG did not reveal any acute ST-T wave changes, but she did have significantly uptrending troponins with a baseline of 62, going up to 128 with a delta of 66 and then 610 with a delta of 548 at 6 hours. She denied any recent viral illness except RSV in 10/2024. Echocardiogram showed normal left ventricular size and systolic function with an EF of 65%, no regional wall motion abnormalities. She underwent a coronary angiogram today which did not reveal any significant coronary disease. D-dimer was less than 0.27, unlikely PE. Urine drug screen was negative for any cocaine or methamphetamines.JENNIFER panel is pending. HIV screen, hepatitis C screen was negative additionally. HbA1c screen was negative with the number at 4.6. Lipid panel showed an LDL level of 84, HDL of 44. TSH was within normal limits. Beta-hCG was negative. Overall given clean coronaries, etiology of the elevated troponins was not readily evident. May be related to myopericarditis versus coronary vasospasm. Imdur was unable to be added due to borderline low blood pressures. Systolic ranging between 95-100. Patient is asymptomatic in this regard. Patient will be discharged with aspirin 325 mg p.o. daily. Patint has not had any further chest pain during admission. Physical Exam Narrative: General: No acute distress, AO x3 HEENT: PERRLA, pupils bilaterally equal and reactive, pallors not present Chest: Normal vesicular breath sounds, no added sounds, equal good air entry bilaterally CVS: S1-S2 regular, no murmurs, no tachycardia, no gallops, no rubs Abdomen: Soft, nontender, no organomegaly, bowel sounds present Neuro: No focal deficits, no facial deformity, AO x3, power 5/5 in all limbs Discharge Data Studies Completed and Pending Completed Studies During Hospitalization Category Date Time Status XR chest 1V portable [id number] Stat Exams 02/24/25 11:45 Completed US echo complete [CV. echo complete* [id number]] Stat Ultrasound 02/24/25 13:59 Completed Pending at discharge Category Date Time Status [employer] CONSULTANT request for service Routine Exams 02/25/25 12:56 Ordered JENNIFER Profile Rheumatology Routine Lab 02/24/25 18:41 Received Basic Metabolic Panel AM LABS Lab 02/26/25 04:00 Ordered Complete Blood Count w/Auto AM LABS Lab 02/26/25 04:00 Ordered Radiology Impressions Chest X-Ray 02/24/25 11:45 IMPRESSION: No acute findings. Laboratory Results WBC 5.92 10^3/uL (3.29-11.43) 02/25/25 05:26 RBC 4.12 10^6/uL (3.85-5.65) 02/25/25 05:26 Hgb 13.10 g/dL (11.27-16.99) 02/25/25 05:26 Hct 39.3 % (36-47) 02/25/25 05:26 MCV 95.4 fl (85-98) 02/25/25 05:26 MCH 31.8 pg (27-33) 02/25/25 05:26 MCHC 33.3 g/dL (30-55) 02/25/25 05:26 RDW 12.3 % (12.1-15.1) 02/25/25 05:26 Plt Count 229 10^3/cmm (157-399) 02/25/25 05:26 MPV 10.7 fL (7.4-10.4) H 02/25/25 05:26 Neut % (Auto) 54.4 % 02/25/25 05:26 Lymph % (Auto) 33.8 % 02/25/25 05:26 Vance % (Auto) 8.4 % 02/25/25 05:26 Eos % (Auto) 2.4 % 02/25/25 05:26 Baso % (Auto) 0.7 % 02/25/25 05:26 Neut # (Auto) 3.22 10^3/uL (1.8-7.7) 02/25/25 05:26 Lymph # (Auto) 2.0 10^3/uL (0.8-4.8) 02/25/25 05:26 Vance # (Auto) 0.5 10^3/uL (0.2-0.9) 02/25/25 05:26 Eos # (Auto) 0.1 10^3/uL (0.0-0.8) 02/25/25 05:26 Baso # (Auto) 0.0 10^3/uL (0.0-0.1) 02/25/25 05:26 Nucleated RBC % (auto) 0 % 02/25/25 05: Nucleated RBCs # 0.0 /100WBC 02/25/25 05:26 D-Dimer <= 0.27 ug/mLFEU (0-0.59) 02/24/25 12:08 Sodium 139 mmol/L (136-145) 02/25/25 05:26 Potassium 4.0 mmol/L (3.5-5.1) 02/25/25 05:26 Chloride 103 mmol/L (98-107) 02/25/25 05:26 Carbon Dioxide 22 mmol/L (22-29) 02/25/25 05:26 Anion Gap 18.0 (5-19) 02/25/25 05:26 BUN 6 mg/dL (6-20) 02/25/25 05:26 Creatinine 0.6 mg/dL (0.5-0.9) 02/25/25 05:26 GFR Calculation 114.4 mL/min (90-130) 02/25/25 05:26 Glucose 86 mg/dL (65-115) 02/25/25 05:26 Estimat Average Glucose 85 02/24/25 12:08 Hemoglobin A1c 4.6 % (4.0-6.0) 02/24/25 12:08 Calculated Osmolality 285 mOsm/kg (285-295) 02/25/25 05:26 Calcium 8.7 mg/dL (8.5-10.5) 02/25/25 05:26 Total Bilirubin 0.3 mg/dL (0.15-1.2) 02/25/25 05:26 AST 22 U/L (0-32) 02/25/25 05:26 ALT 13 U/L (0-33) 02/25/25 05:26 Alkaline Phosphatase 69 U/L (35-105) 02/25/25 05:26 Troponin T 5th Gen ng/L 325 ng/L (0-10) H* 02/25/25 09:29 Troponin T Baseline 62 ng/L (0-10) H 02/24/25 12:08 Troponin T 120 Minute 128.0 ng/L (0-10) H 02/24/25 13:21 Delta Troponin T 66.0 ABS# (0-10) H* 02/24/25 13:21 Troponin T Hi Sens 6Hr 610.2 ng/L (0-10) H 02/24/25 18:41 Troponin T Hi Sens 6Hr Delta 548.2 ng/L (0-12) H* 02/24/25 18:41 Total Protein 6.3 g/dL (6.6-8.7) L 02/25/25 05:26 Albumin 3.7 g/dL (3.5-5.2) 02/25/25 05:26 Globulin 2.6 g/dL (1.3-4.6) 02/25/25 05:26 Triglycerides 116 mg/dL (0-150) 02/24/25 12:08 Cholesterol 151 mg/dL (0-200) 02/24/25 12:08 LDL Cholesterol, Calc 84 mg/dL (50-129) 02/24/25 12:08 HDL Cholesterol 44 mg/dL (60-100) L 02/24/25 12:08 LDL/HDL Ratio 1.91 RATIO (0.00-3.22) 02/24/25 12:08 Cholesterol/HDL Ratio 3.43 mg/dL (0.0-4.40) 02/24/25 12:08 TSH 0.92 uIU/mL (0.27-4.20) 02/24/25 12:08 HCG, Qual Negative (Negative) 02/24/25 12:05 Urine Color Yellow (Yellow) 02/24/25 12:05 Urine Appearance Clear (CLEAR) 02/24/25 12:05 Urine pH 5.5 (5-7) 02/24/25 12:05 Ur Specific [place] 1.005 (1.005-1.030) 02/24/25 12:05 Urine Protein Negative (Negative) 02/24/25 12:05 Urine Glucose (UA) Negative (Normal) 02/24/25 12:05 Urine Ketones Negative (Negative) 02/24/25 12:05 Urine Blood 2+ (Negative) A 02/24/25 12:05 Urine Nitrate Negative (Negative) 02/24/25 12:05 Urine Bilirubin Negative (Negative) 02/24/25 12:05 Urine Urobilinogen 0.2 mg/dL (Negative) 02/24/25 12:05 Ur Leukocyte Esterase 1+ (Negative) A 02/24/25 12:05 Urine RBC 3-5 /hpf (0-2) 02/24/25 12:05 Urine WBC 11-20 /hpf (0-5) H 02/24/25 12:05 Ur Squamous Epith Cells 11-20 /hpf (0-5) H 02/24/25 12:05 Amorphous Sediment Not Reportable 02/24/25 12:05 Urine Bacteria 1+ /hpf (NONE) H 02/24/25 12:05 Hyaline Casts 0.81 /lpf 02/24/25 12:05 Urine Opiates Screen Negative ng/mL (Negative) 02/24/25 12:05 Ur Barbiturates Screen Negative ng/mL (Negative) 02/24/25 12:05 Ur Phencyclidine Scrn Negative ng/mL (Negative) 02/24/25 12:05 Ur Amphetamines Screen Negative ng/mL (Negative) 02/24/25 12:05 U Benzodiazepines Scrn Negative ng/mL (Negative) 02/24/25 12:05 Urine Cocaine Screen Negative ng/mL (Negative) 02/24/25 12:05 U Marijuana (THC) Screen Negative ng/mL (Negative) 02/24/25 12:05 Hepatitis A IgM Ab Non-reactive (Nonreactive) 02/24/25 18:41 Hep Bs Antigen Non-reactive (Nonreactive) 02/24/25 18:41 Hep Bs Antibody 13.2 (11.5-1000) 02/24/25 18:41 Hep B Core Total Ab Non-reactive (Nonreactive) 02/24/25 18:41 Hepatitis C Antibody Non-reactive (Nonreactive) 02/24/25 18:41 HIV 1&2 Ab & HIV 1 Ag Non-reactive (Non-Reactiv) 02/24/25 18:41 HIV 1&2 Antibody Non-reactive (Non-Reactiv) 02/24/25 18:41 Vitals Last Vital Signs Temp 98.4 F 02/25/25 12:00 Pulse 61 02/25/25 12:03 Resp 16 02/25/25 12:03 BP 113/92 02/25/25 12:00 Pulse Ox 97 02/25/25 12:03 O2 Del Method Room Air 02/25/25 12:03 Discharge Plan Discharge Patient Disposition: Home Condition: Stable Prescriptions: New aspirin 325 mg tablet 325 mg PO DAILY Qty: 30 0RF pantoprazole [Protonix] 40 mg tablet,delayed release (DR/EC) 40 mg PO DAILY 28 Days Qty: 30 0RF Continued albuterol sulfate 2.5 mg /3 mL (0.083 %) solution for nebulization 2.5 mg inhalation Q4H PRN (Reason: shortness of breath or wheezing) Qty: 90 0RF Discharge Orders: Discharge Order (Routine); Ordered 02/25/25 Ordered By: Annita Tapia Referrals: Jihan Ramachandran FNP [Nurse Practitioner, Cardiology] - 03/05/25 2:00 pm Referral Note: f/up hospital discharge Simone Wayne MD [Physician, Family Practice] Referral Note: We have notified your physician's clinic of the need for a follow-up appointment to be scheduled. If you have not heard from them within the next 2 business days, please call them directly. Discharge Diet: Usual diet Discharge Activity: Resume usual activity Patient Instructions: Aspirin (By mouth), Pantoprazole (By mouth) (Protonix), Heart Catheterization (DC), Opioid Safety, Post Angiogram Home Care Instructions Discharge Attestations Time Spent in Discharge Care*: greater than 30 min Quality Metrics Clinical Quality Measures [ No reported AMI, CVA or VTE this stay] Coding Level of Care Code Acute Code for Chg Fwd Diagnoses Elevated troponin R79.89 Chest pain, unspecified type R07.9 Chest pain type: unspecified
--- NOTE | 2025-02-25 14:46 | PC.NURSE ---
Patient has NS at 100ml/hr that was hanging from chemical lab technician.
--- NOTE | 2025-02-25 18:04 | PC.NURSE ---
Patient's right radial TR-band, air is removed slowly 2 ml's at a time. TR-band is removed and a dressing of 2x2 and tegaderm is placed. No hematoma is noted. Patient tolerated well. Patient is reeducated not to use her right hand/wrist for 24 hours. Patient states understanding.
[2025-02-27 04:10] LABS: CENTROMERE B ANTIBODY <1.0 NEG AI (<1.0 NEG); JO-1 ANTIBODY <1.0 NEG AI (<1.0 NEG); RNP ANTIBODY <1.0 NEG AI (<1.0 NEG); SCL-70 ANTIBODY <1.0 NEG AI (<1.0 NEG); SJOGREN'S ANTIBODY (SS-A) <1.0 NEG AI (<1.0 NEG); SM ANTIBODY <1.0 NEG AI (<1.0 NEG); SS-B <1.0 NEG AI (<1.0 NEG)
[2025-02-27 13:04] LABS: ANA SCREEN, IFA NEGATIVE (NEGATIVE)
[2025-02-27 13:15] LABS: COMPLEMENT, TOTAL (CH50) >60 U/mL (31-60)
[2025-02-27 15:49] LABS: COMPLEMENT COMPONENT C3C 134 mg/dL (83-193); COMPLEMENT COMPONENT C4C 17 mg/dL (15-57)
[2025-02-28 08:34] LABS: THYROID PEROXIDASE ANTIBODIES 2 IU/mL (<9)
[2025-03-03 01:09] LABS: DNA AB (DS) CRITHIDIA,IFA NEGATIVE (NEGATIVE)
== END 2025-02-25 19:20 | disposition home or self-care (01) | DRG 287 ==
LOC: ER 14:05 → CSU 14:25
PROVIDERS: Internal Medicine Cardiovascular Disease; Admitting Provider Student in an Organized Health Care Education/Training Program; Emergency Provider Emergency Medicine; PCP Nurse Practitioner Family; Visit Provider Student in an Organized Health Care Education/Training Program
PROC: 4A023N7 Measurement of Cardiac Sampling and Pressure, Left Heart, Percutaneous Approach (ICD-10-PCS; principal; 2025-02-25 11:30)
DX: I31.9 Disease of pericardium, unspecified (principal); I20.1 Angina pectoris with documented spasm; N39.0 Urinary tract infection, site not specified; R79.89 Other specified abnormal findings of blood chemistry; F17.210 Nicotine dependence, cigarettes, uncomplicated; J45.909 Unspecified asthma, uncomplicated; F41.9 Anxiety disorder, unspecified; F31.9 Bipolar disorder, unspecified; F15.91 Other stimulant use, unspecified, in remission; Z82.49 Family history of ischemic heart disease and other diseases of the circulatory system
CPT/HCPCS: 36415; 71045; 80053; 80061; 80306; 81001; 81025; 83036; 84443; 84484; 85025; 85378; 86160; 86162; 86235; 86255; 86376; 86705; 86706; 86709; 86803; 87340; 87806; 93005; 93306; 93458; 96372; 96374; 96376; 99152; 99153; 99285; C1769; C1887; C1894; J0696; J1200; J1644; J1650; J2250; J2270; J2405; J3010; J3490; J7030; J9999; Q9967

== ENCOUNTER → 2025-03-05 13:38 | Outpatient (BNVA) | payer MEDICARE, MEDICAID, SELFPAY | PROVIDERS: PCP Nurse Practitioner Family; Visit Provider Nurse Practitioner Family | DX: Z09 Encounter for follow-up examination after completed treatment for conditions other than malignant neoplasm (principal); I21.4 Non-ST elevation (NSTEMI) myocardial infarction; R79.89 Other specified abnormal findings of blood chemistry; R07.9 Chest pain, unspecified; Z79.82 Long term (current) use of aspirin; F17.210 Nicotine dependence, cigarettes, uncomplicated; R00.2 Palpitations | CPT/HCPCS: 99213 ==

== ENCOUNTER → 2025-03-07 10:50 | Outpatient (BNVA) | payer MEDICARE, MEDICAID, SELFPAY | DX: R07.9 Chest pain, unspecified (principal); F17.210 Nicotine dependence, cigarettes, uncomplicated | CPT/HCPCS: 80048; 85025; 85651 ==

== ENCOUNTER → 2025-03-18 14:22 | Outpatient (BNVA) | payer MEDICARE, MEDICAID, SELFPAY | PROVIDERS: Visit Provider Internal Medicine | DX: R07.9 Chest pain, unspecified (principal); R00.2 Palpitations; Z79.82 Long term (current) use of aspirin; F17.210 Nicotine dependence, cigarettes, uncomplicated | CPT/HCPCS: 99214 ==

== ENCOUNTER → 2025-05-08 12:00 | Outpatient (BNVA) | payer MEDICARE, MEDICAID, SELFPAY | PROVIDERS: Visit Provider Internal Medicine | DX: R07.9 Chest pain, unspecified (principal); R00.2 Palpitations | CPT/HCPCS: 99213 ==

== ENCOUNTER → 2025-06-06 12:19 | Outpatient (BNVA) | payer MEDICARE, MEDICAID, SELFPAY | PROVIDERS: Visit Provider Nurse Practitioner Women's Health | DX: N93.9 Abnormal uterine and vaginal bleeding, unspecified (principal) | CPT/HCPCS: 76830 ==

== ENCOUNTER → 2025-06-18 12:05 | Outpatient (BNVA) | payer MEDICARE, MEDICAID, SELFPAY | PROVIDERS: Visit Provider Internal Medicine | DX: R07.89 Other chest pain (principal); R00.2 Palpitations; F17.200 Nicotine dependence, unspecified, uncomplicated; R55 Syncope and collapse | CPT/HCPCS: 99214 ==

== ENCOUNTER 2025-06-26 10:09 | Emergency (ER) | payer MEDICARE, MEDICAID, SELFPAY ==
[2025-06-26 10:13] VITALS: BP 121/62; PULSE 68; RESP 15; TEMP 36.8; O2SAT 69; BMI 26.6
--- NOTE | 2025-06-26 10:13 | ECG_ITS ---
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 Measurements Intervals [place] Rate: 64 P: 47 [place]: 140 QRS: 69 QRSD: 93 T: 39 QT: 417 QTc: 433 Interpretive Statements SINUS RHYTHM POSSIBLE LEFT ATRIAL ENLARGEMENT [-0.1mV P-WAVE IN V1/V2] Compared to ECG 02/25/2025 11:55:41 Sinus bradycardia no longer present Mild ST elevation in the inferior leads no longer present Electronically Signed On 06-26-2025 22:04:25 CDT by Brooks Hubbard M.D. [email or web address]
--- NOTE | 2025-06-26 10:13 | XR_ITS ---
WS: [id number] Portable AP upright chest, 06/26/2025 Clinical Data: dyspnea/cough Comparison: Portable chest, 02/24/2025 Findings: No nodules, masses or effusions are seen. The heart is normal. The pulmonary vascularity is not increased. No pneumonia or pneumothorax is seen. There is a thoracic dextroscoliosis. There is a recording device overlying the mid chest. Monitor leads are on the chest wall. XR/XR chest 1V portable [id number] Impression: Negative chest.
--- OUTSIDE RECORDS SUMMARY | 2025-06-26 10:15 | XMS_ITS | Encounter Summary ---
Author Organization [facility] Address [address] 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
--- OUTSIDE RECORDS SUMMARY | 2025-06-26 10:15 | XMS_ITS | Encounter Summary ---
Author Organization [facility] Address [address] 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
--- OUTSIDE RECORDS SUMMARY | 2025-06-26 10:15 | XMS_ITS | Encounter Summary ---
Author Organization [facility] Address [address] [place] [address] Dr. Zepedan: Epic Prelude ADT LISHA CONNER [address] Care Team Providers Care Optician Name Role Phone Magdalena Archuleta Primary Care Provid er Encounter Details Date Type Department Care Team (Late st Contact Info) Description 04/29/2000 Outpatient Historical Rodrigue Riley MD NO ADDRESS ON FILE Social History Tobacco Use Types Packs/Day Years Used Date Smoking Tobacco: Never Assessed Comments Unknown Sex and Gender Information Value Date Recorded Sex Assigned at Not on file Legal Sex Female 5:08 AM HAND QUILTER Gender Identity Not on file Sexual Orientation Not on file documented as of this encounter Plan of Treatment Not on file documented as of this encounter Visit Diagnoses Not on filedocumented in this encounter Care Teams Optician Relationship Specialty Start Date End Date Magdalena Archuleta FNP PCP - General NURSE PRACTITIONER 04/24/15 09/04/15 documented as of this encounter
--- OUTSIDE RECORDS SUMMARY | 2025-06-26 10:15 | XMS_ITS | Encounter Summary ---
Author Organization [facility] Address [address] [place] [address] Dr. 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
--- OUTSIDE RECORDS SUMMARY | 2025-06-26 10:15 | XMS_ITS | Clinical Summary ---
Author Organization [facility] Address [address] [address] Phone Care Team Providers Care Consultant Nurse Name Role Phone Unavailable Primary Care Provider Unavailabl e Allergies Active Allergy Reactions Criticality Noted Date Comments Morphine Other (See Comments) 12/16/2017 violent Medications No known medications Active Problems Problem Noted Date Diagnosed Date 10.07/29/2016 PTSD (post-traumatic stress disorder) 12/21/2014 Bipolar disorder current episode depressed 12/21 Unspecified personality disorder 12/21/2014 Chronic back pain 12/21/2014 Overview (12/21/2014): 10 years reports Resolved Problems Problem Noted Date Diagnosed Date Resolved Date SROM, labor, B-, GBS- 07/29/20162015 Bacterial conjunctivitis of left eye 12/22/2014 07/29/2016 Abnormal urine 12/21/2014 07/29/2016 Encounters Date Type Department Care Team Description 06/04/2025 External Device Data [facility] ABSTRACTION Provider, Abstract 06/04/2025 External Device Data [facility] ABSTRACTION Provider, Abstract 05/01/2025 External Device Data [facility] ABSTRACTION Provider, Abstract 04/30/2025 External Device Data [facility] ABSTRACTION Provider, Abstract 04/02/2025 External Device Data [facility] ABSTRACTION Provider, Abstract from Last 3 Months Immunizations Immunization Administration Dates Next Due (ADACEL/BOOSTRIX)(10 YR UP) TDAP VACCINE, 0.5ML, IM 07/30/2016 INFLUENZA VACCINE QUADRIVALENT 3 YR UP PF IM 12/2015 Rho (D) IMMUNE GLOBULIN 1,500 UNIT(300 MCG) INJE CTION 05/31/2016,01/05/2016 Family History Medical History Relation Name Comments Healthy Brother 1 Healthy Brother 2 Unknown Father Heart Disease Maternal Grandfather Other Maternal Grandmother fredrick ons Depression Mother Healthy Mother Unknown Paternal Grandfather Unknown Paternal Grandmother Healthy Sister 1 Healthy Sister 2 Relation Name Status Comments Brother 1 Alive Brother 2 Alive Father Alive Maternal Grandfather Alive Maternal Grandmother Alive Mother Alive Paternal Grandfather Paternal Grandmother Sister 1 Alive Sister 2 Alive Social History Tobacco Use Types Packs/Day Years Used Date Smoking Tobacco: Former Cigarettes 0.5 2 Smokeless Tobacco: Never Alcohol Use Standard Drinks/Week Comments No 0 (1 standard drink = 0.6 oz pure alcohol) very rarely, maybe once a month Comments No Sex and Gender Information Value Date Recorded Sex Assigned at Not on file Legal Sex Female 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 INKJET OPERATOR Gender Identity Not on file Sexual Orientation Not on file Occupation Industry Job Start Date Job End Date Not on file Not on file Not on file Not on file Not on file Not on file Not on file Not on file Last Filed Vital Signs Vital Sign Reading Time Taken Comments Blood Pressure 116/70 02/05/2025 10:20 AM CDT Pulse 89 04/07/2020 4:53 PM CDT Temperature 36.5 C (97.7 F) 04/07/2020 4:53 PM CDT Respiratory Rate 16 04/07/2020 4:53 PM CDT Oxygen Saturation 99% 04/07/2020 4:53 PM CDT Inhaled Oxygen Concentration - - Weight 77.1 kg (170 lb) 02/05/2025 10:20 AM CDT Height 170.2 cm (5' 7 ) 02/05/2025 10:20 AM CDT Body Mass Index 26.63 02/05/2025 10:20 AM CDT Plan of Treatment Health Maintenance Due Date Last Done Comments HEPATITIS B VACCINES (1 of 3 - 19+ 3-dose series) 2009 HPV VACCINES (1 - 3-dose SCDM series) 2017 INFLUENZA VACCINE (#1) 2025 01/16/2025, 2015 DTAP/TDAP/TD VACCINES (2 - Td or Tdap) 07/30/2026 Insurance MEDICAID [place] MEDICARE PART A AND B Advance Directives For more information, please contact: [phone] * Full Code (Latest Code Status on File) Date Activated Date Inactivated Comments 07/29/2016 8:07 PM 07/31/2016 3:26 PM * Full Code Date Activated Date Inactivated Comments 07/29/2016 3:31 PM 07/29/2016 8:07 PM * Full Code Date Activated Date Inactivated Comments 07/29/2016 12:48 PM 07/29/2016 3:31 PM * Full Code Date Activated Date Inactivated Comments 07/29/2016 12:02 PM 07/29/2016 12:48 PM * Full Code Date Activated Date Inactivated Comments 07/22/2016 12:29 AM 07/22/2016 4:09 AM
--- OUTSIDE RECORDS SUMMARY | 2025-06-26 10:15 | XMS_ITS | Encounter Summary ---
Author Organization [facility] Address [address] 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
--- OUTSIDE RECORDS SUMMARY | 2025-06-26 10:15 | XMS_ITS | Encounter Summary ---
Author Organization [facility] Address [address] [place] [address] Care Team Providers Care Chemical Handler Name Role Phone Magdalena Archuleta Primary Care Provid er Encounter Details Date Type Department Care Team (Late st Contact Info) Description 06/09/2004 Emergency [facility] Angela Littlejohn MD NO ADDRESS ON FILE Er, Authorized P NO ADDRESS ON FILE DEPRESSIVE DISORDER NEC (Primary Dx) Social History Tobacco Use Types Packs/Day Years Used Date Smoking Tobacco: Never Assessed Comments Unknown Sex and Gender Information Value Date Recorded Sex Assigned at Not on file Legal Sex Female 5:08 AM POWDERED SUGAR SUPERVISOR Gender Identity Not on file Sexual Orientation Not on file documented as of this encounter Plan of Treatment Not on file documented as of this encounter Visit Diagnoses Diagnosis Depressive disorder, not elsewhere classified- Primary documented in this encounter Care Teams Chemical Handler Relationship Specialty Start Date End Date Magdalena Archuleta FNP PCP - General NURSE PRACTITIONER 04/24/15 09/04/15 documented as of this encounter
--- OUTSIDE RECORDS SUMMARY | 2025-06-26 10:15 | XMS_ITS | Encounter Summary ---
Author Organization [facility] Address [address] Godinez: Epic Prelude ADT LISHA CONNER [address] Care Team Providers Care Cone Treater Name Role Phone Magdalena Archuleta Primary Care Provid er Encounter Details Date Type Department Care Team (Late st Contact Info) Description 09/12/2000 Outpatient Historical Raza Robledo MD [address] [place] [address] Social History Tobacco Use Types Packs/Day Years Used Date Smoking Tobacco: Never Assessed Comments Unknown Sex and Gender Information Value Date Recorded Sex Assigned at Not on file Legal Sex Female 5:08 AM HYPERTRICHOLOGIST Gender Identity Not on file Sexual Orientation Not on file documented as of this encounter Plan of Treatment Not on file documented as of this encounter Visit Diagnoses Not on filedocumented in this encounter Care Teams Cone Treater Relationship Specialty Start Date End Date Magdalena Archuleta FNP PCP - General NURSE PRACTITIONER 04/24/15 09/04/15 documented as of this encounter
--- OUTSIDE RECORDS SUMMARY | 2025-06-26 10:15 | XMS_ITS | Encounter Summary ---
Author Organization [facility] Address [address] [place] [address] Care Team Providers Care Retail Security Professional Name Role Phone Magdalena Archuleta Primary Care Provid er Encounter Details Date Type Department Care Team (Late st Contact Info) Description 06/10/2004 Outpatient Historical [facility] Child and Adolescent Psychiatry [facility] [address] [place] [phone] [place] [address] [facility] [place] [address] Social History Tobacco Use Types Packs/Day Years Used Date Smoking Tobacco: Never Assessed Comments Unknown Sex and Gender Information Value Date Recorded Sex Assigned at Not on file Legal Sex Female 5:08 AM PASTRY ARTIST Gender Identity Not on file Sexual Orientation Not on file documented as of this encounter Plan of Treatment Not on file documented as of this encounter Visit Diagnoses Not on filedocumented in this encounter Care Teams Retail Security Professional Relationship Specialty Start Date End Date Magdalena Archuleta FNP PCP - General NURSE PRACTITIONER 04/24/15 09/04/15 documented as of this encounter
--- OUTSIDE RECORDS SUMMARY | 2025-06-26 10:15 | XMS_ITS | Encounter Summary ---
Author Organization [facility] Address [address] [place] [address] Dr. Godinez: Epic Prelude ADT LISHA CONNER [address] Care Team Providers Care Career Development Associate Name Role Phone Magdalena Archuleta Primary Care Provid er Encounter Details Date Type Department Care Team (Late st Contact Info) Description 06/15/1999 Outpatient Historical Eva Conklin MD [address] [place] [address] Social History Tobacco Use Types Packs/Day Years Used Date Smoking Tobacco: Never Assessed Comments Unknown Sex and Gender Information Value Date Recorded Sex Assigned at Not on file Legal Sex Female 5:08 AM FREIGHT FORWARDER Gender Identity Not on file Sexual Orientation Not on file documented as of this encounter Plan of Treatment Not on file documented as of this encounter Visit Diagnoses Not on filedocumented in this encounter Care Teams Career Development Associate Relationship Specialty Start Date End Date Magdalena Archuleta FNP PCP - General NURSE PRACTITIONER 04/24/15 09/04/15 documented as of this encounter
--- OUTSIDE RECORDS SUMMARY | 2025-06-26 10:15 | XMS_ITS | Encounter Summary ---
Author Organization [facility] Address [address] [place] [address] Care Team Providers Care Tankage Grinder Operator Name Role Phone Magdalena Archuleta Primary Care Provid er Encounter Details Date Type Department Care Team (Late st Contact Info) Description 06/10/2004 Outpatient Historical [place] [address] [facility] [place] [address] BIPOLAR - MOST RECENT EPISODE UNSPECIFIED (CMS/HCC) (Primary Dx) Social History Tobacco Use Types Packs/Day Years Used Date Smoking Tobacco: Never Assessed Comments Unknown Sex and Gender Information Value Date Recorded Sex Assigned at Not on file Legal Sex Female 5:08 AM CLOTH NAPPING SUPERVISOR Gender Identity Not on file Sexual Orientation Not on file documented as of this encounter Plan of Treatment Not on file documented as of this encounter Visit Diagnoses Diagnosis Bipolar I disorder, most recent episode (or current) unspecified (CMS/HCC)- Primary Bipolar I disorder, most recent episode (or current) unspecified documented in this encounter Care Teams Tankage Grinder Operator Relationship Specialty Start Date End Date Magdalena Archuleta FNP PCP - General NURSE PRACTITIONER 04/24/15 09/04/15 documented as of this encounter
[2025-06-26 10:37] LABS: Hematocrit 40.4 % (36-47); Hemoglobin 13.70 g/dL (11.27-16.99); Mean Corpuscular HGB Conc 33.9 g/dL (30-55); Mean Corpuscular Hemoglobin 31.9 pg (27-33); Mean Corpuscular Volume 94.2 fl (85-98); Nucleated Red Blood Cells % 0 %; Platelet Count 292 10^3/cmm (157-399); Red Blood Count 4.29 10^6/uL (3.85-5.65); White Blood Count 6.47 10^3/uL (3.29-11.43)
--- NOTE | 2025-06-26 10:37 | ED_ITS ---
HPI - Chest Pain 2 General: Chief Complaint: Chest Pain Stated Complaint: cp, sob Time Seen by Provider: 06/26/25 10:12 History of Present Illness: 34-year-old female presents emergency ro om complaining of chest pain with shortness of breath. Is been going on for 2 weeks she been wearing a Holter monitor for the last couple of weeks. In February of this year she had chest pain is admitted to the emergency room eventually an angiogram was done she had elevation of troponin it was first thought to be an NSTEMI on the final procedure note And discharge summary it is listed as myocarditis. Associated symptoms: Deny abdominal pain, dyspnea or fever(s) Related Data Previous Rx's ?Medication ?Instructions ?Recorded aspirin 81 mg tablet 81 mg PO DAILY #30 tabs 02/15 0 nitroglycerin 0.4 mg sublingual 0.4 mg sublingual Q5M PRN chest 03/05/25 tablet pain #25 tabs amlodipine 5 mg tablet 5 mg PO DAILY #90 tabs 03/18 Allergies Allergy/AdvReac Type Severity Reaction Status Date / Time ibuprofen Allergy Unknown Verified 06/24/25 09:54 Review of Systems 2 Const: Denies: fever(s) or chills Card: Reports: chest pain and dyspnea on exertion; Denies: edema or swelling of feet/ankles Resp: Denies: dyspnea GI: Denies: abdominal pain : Denies: dysuria, urinary frequency or urinary urgency Musc: Denies: neck pain or back pain Skin/Breast: Denies: rash PFSH ED 2 PFSH: Medical History Ovulation pain History of ovarian cyst Asthma Fall Deltoid tendinitis of left shoulder Family History Grandfather Hypertension Stroke Grandmother Lung disease Stroke Mother Lung disease Denies family history of Colon cancer Ovarian cancer Diabetes Heart disease Breast cancer Uterine cancer Thyroid disease Social History Smoking and tobacco/nicotine status: current every day tobacco/nicotine user Physical Exam 2 Const: COMMON NORMALS: no acute distress GENERAL APPEARANCE: cooperative and comfortable ORIENTATION/CONSCIOUSNESS: Yes awake, Yes oriented to person, Yes oriented to place and Yes oriented to time HENMT: COMMON NORMALS: normocephalic, atraumatic and hearing grossly normal bilaterally HEAD & SCALP: normocephalic and atraumatic Resp: COMMON NORMALS: normal respiratory effort, No retractions, No use of accessory muscles and clear to auscultation bilaterally AUSCULTATION: clear to auscultation bilaterally Cardio: COMMON NORMALS: regular rate, regular rhythm and No murmurs present (Cardio) RATE: regular rate RHYTHM: regular rhythm GI: COMMON NORMALS: Soft to palpation and No hepatosplenomegaly present A USCULTATION: Yes normoactive bowel sounds PALPATION: Yes Soft to palpation, No Tenderness to palpation present (GI), No Guarding due to palpation present (GI) and Yes No hepatosplenomegaly present Extremity: COMMON NORMALS: normal to inspection, capillary refill normal, no clubbing, cyanosis or edema, no calf tenderness and no pedal edema Neuro: SENSORIUM/ORIENTATION: Yes oriented to person, Yes oriented to place and Yes oriented to time Skin: COMMON NORMALS: no rashes or lesions noted GENERAL SKIN EXAM: no rashes or lesions noted Course 2 Vital Signs: Vital signs: Vital Signs Temperature 98.2 F 06/26/25 10:13 Pulse Rate 78 06/26/25 13:27 Respiratory Rate 17 06/26/25 11:33 Blood Pressure 121/62 06/26/25 13:27 Pulse Oximetry 99 06/26/25 13:27 Oxygen Delivery Me thod Room Air 06/26/25 11:33 MDM - Chest Pain Medical Decision Making Cardiac enzymes negative recent angiography from 4 months ago reviewed was no signs of coronary artery disease. They are concerned about a myocarditis she did have an elevation of her troponins at that time. Troponins trended and normal today and her white count is normal will discharge patient home set up for cardiac follow-up with cardiology Medical Records I reviewed the patient's medical records. Lab Data I reviewed the patient's lab results. 06/26/25 10:20 06/26/25 10:20 Radiology Impressions Chest X-Ray 06/26/25 10:13 Impression: Negative chest. Laboratory Results WBC 6.47 10^3/uL (3.29-11.43) 06/26/25 10:20 RBC 4.29 10^6/uL (3.85-5.65) 06/26/25 10:20 Hgb 13.70 g/dL (11.27-16.99) 06/26/25 10:20 Hct 40.4 % (36-47) 06/26/25 10:20 MCV 94.2 fl (85-98) 06/26/25 10:20 MCH 31.9 pg (27-33) 06/26/25 10:20 MCHC 33.9 g/dL (30-55) 06/26/25 10:20 RDW 12.7 % (12.1-15.1) 06/26/25 10:20 Plt Count 292 10^3/cmm (157-399) 06/26/25 10:20 MPV 10.2 fL (7.4-10.4) 06/26/25 10:20 Neut % (Auto) 66.6 % 06/26/25 10:20 Lymph % (Auto) 26.7 % 06/26/25 10:20 [place] % (Auto) 4.9 % 06/26/25 10:20 Eos % (Auto) 1.1 % 06/26/25 10:20 Baso % (Auto) 0.5 % 06/26/25 10:20 Neut # (Auto) 4.31 10^3/uL (1.8-7.7) 06/26/25 10:20 Lymph # (Auto) 1.7 10^3/uL (0.8-4.8) 06/26/25 10:20 [place] # (Auto) 0.3 10^3/uL (0.2-0.9) 06/26/25 10:20 Eos # (Auto) 0.1 10^3/uL (0.0-0.8) 06/26/25 10:20 Baso # (Auto) 0.0 10^3/uL (0.0-0.1) 06/26/25 10:20 Nucleated RBC % (auto) 0 % 06/26/25 10:20 Nucleated RBCs # 0.0 /100WBC 06/26/25 10:20 Sodium 136 mmol/L (136-145) 06/26/25 10:20 Potassium 3.9 mmol/L (3.5-5.1) 06/26/25 10:20 Chloride 102 mmol/L (98-107) 06/26/25 10:20 Carbon Dioxide 25 mmol/L (22-29) 06/26/25 10:20 Anion Gap 12.9 (5-19) 06/26/25 10:20 BUN 6 mg/dL (6-20) 06/26/25 10:20 Creatinine 0.6 mg/dL (0.5-0.9) 06/26/25 10:20 GFR Calculation 114.4 mL/min (90-130) 06/26/25 10:20 Glucose 92 mg/dL (65-115) 06/26/25 10:20 Calculated Osmolality 279 mOsm/kg (285-295) L 06/26/25 10:20 Calcium 8.9 mg/dL (8.5-10.5) 06/26/25 10:20 Total Bilirubin 0.4 mg/dL (0.15-1.2) 06/26/25 10:20 AST 12 U/L (0-32) 06/26/25 10:20 ALT 13 U/L (0-33) 06/26/25 10:20 Alkaline Phosphatase 85 U/L (35-105) 06/26/25 10:20 Troponin T Baseline < 6 ng/L (0-10) 06/26/25 10:20 Troponin T 120 Minute 7.86 ng/L (0-10) 06/26/25 12:44 Delta Troponin T 1.10081 ABS# (0-10) 06/26/25 12:44 Total Protein 6.7 g/dL (6.6-8.7) 06/26/25 10:20 Albumin 3.9 g/dL (3.5-5.2) 06/26/25 10:20 Globulin 2.8 g/dL (1.3-4.6) 06/26/25 10:20 Urine Opiates Screen Negative ng/mL (Negative) 06/26/25 10:49 Ur Barbiturates Screen Negative ng/mL (Negative) 06/26/25 10:49 Ur Phencyclidine Scrn Negative ng/mL (Negative) 06/26/25 10:49 Ur Amphetamines Screen Negative ng/mL (Negative) 06/26/25 10:49 U Benzodiazepines Scrn Negative ng/mL (Negative) 06/26/25 10:49 Urine Cocaine Screen Negative ng/mL (Negative) 06/26/25 10:49 U Marijuana (THC) Screen Negative ng/mL (Negative) 06/26/25 10:49 All radiology interpretation(s) finalized by discharge EKG Data EKG 1: Interpretation: EKG 06/26/2025 sinus rhythm rate of 64 TX interval 140 QTc [address] changes noted. EKG compared to 02/25/2025 no significant change EKG 2: Interpretation: EKG 06/26/2025 1145 sinus rhythm rate of 66. Normal 162 QTc [address] changes no T wave inversion no change from prior EKGs done today and in February of this year. Discharge Plan Discharge Patient Disposition: Home Clinical Impression: Atypical chest pain Condition: Stable Prescriptions: No Action aspirin 81 mg tablet 81 mg PO DAILY Qty: 30 6RF nitroglycerin 0.4 mg tablet, sublingual 0.4 mg sublingual Q5M PRN (Reason: chest pain) Qty: 25 3RF Rx Instructions: do not exceed 3 doses per episode amlodipine 5 mg tablet 5 mg PO DAILY Qty: 90 3RF Discharge Orders: Discharge ED (Routine); Ordered 06/26/25 Ordered By: Abdulaziz Cullen Referrals: Vanda Wick NP [Primary Care Provider, Family Practice] Discharge Diet: Usual diet Discharge Activity: Resume usual activity Patient Instructions: Opioid Safety, Pain Management, Patient Portal & Pedro Instructions Activity Restrictions/Additional Instructions: Thank you for choosing [facility] for your healthcare needs today. It is very important that you follow up as instructed or that you return to the Emergency Department should you have concerns or if your condition changes or worsens in any way. Emergency department visits are focused on emergent conditions, in some cases you may require further evaluation on an outpatient basis. You were seen in the emergency room with complaints of chest pain and shortness of breath chest x-ray was normal your cardiac enzymes and EKG did not show any acute changes. Recommend that you follow-up with cardiology within the next week. (Please note that included in your discharge packet is information concerning opioid safety and pain management. This information is given to all patients were discharged from the ER regardless of their discharge diagnosis or the medicines they usually take or are prescribed.) Print Language: Lao Coding Level of Care Code ED News Reel Cameraman for Kamran Lauren
[2025-06-26 10:50] LABS: Anion Gap 12.9 (5-19); Blood Urea Nitrogen 6 mg/dL (6-20); Carbon Dioxide 25 mmol/L (22-29); Chloride 102 mmol/L (98-107); Potassium 3.9 mmol/L (3.5-5.1); Sodium 136 mmol/L (136-145)
[2025-06-26 10:51] LABS: Alanine Aminotransferase 13 U/L (0-33); Albumin Level 3.9 g/dL (3.5-5.2); Alkaline Phosphatase 85 U/L (35-105); Aspartate Amino Transferase 12 U/L (0-32); Calcium 8.9 mg/dL (8.5-10.5); Creatinine Clr Calc Pharmacy 141.4161; Globulin 2.8 g/dL (1.3-4.6); Glucose 92 mg/dL (65-115); Osmolality Calculated 279 mOsm/kg (285-295); Total Protein 6.7 g/dL (6.6-8.7)
[2025-06-26 11:06] LABS: PCP Screen Urine Negative (Negative)
[2025-06-26 11:33] VITALS: BP 154/80; PULSE 106; RESP 17; O2SAT 89
--- NOTE | 2025-06-26 11:35 | ECG_ITS ---
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 Measurements Intervals [place] Rate: 66 P: 44 WV: 162 QRS: 71 QRSD: 102 T: 36 QT: 441 QTc: 465 Interpretive Statements SINUS RHYTHM WITH SINUS ARRHYTHMIA POSSIBLE LEFT ATRIAL ENLARGEMENT [-0.1mV P-WAVE IN V1/V2] Compared to ECG 06/26/2025 10:09:09 No significant changes Electronically Signed On 06-26-2025 23:33:33 CDT by Brooks Hubbard M.D. [email or web address]
[2025-06-26 12:07] LABS: Troponin(5th) Baseline < 6 ng/L (0-10)
[2025-06-26 13:00] VITALS: BP 121/62; PULSE 76; O2SAT 99
[2025-06-26 13:06] LABS: Troponin 5 2HR 7.86 ng/L (0-10); Troponin 5 2HR Delta 1.86001 ABS# (0-10)
[2025-06-26 13:27] VITALS: BP 121/62; PULSE 78; O2SAT 99
== END 2025-06-26 13:28 | disposition home or self-care (01) ==
PROVIDERS: Emergency Provider Family Medicine
DX: R07.89 Other chest pain (principal); Z79.82 Long term (current) use of aspirin; Z72.0 Tobacco use
CPT/HCPCS: 36415; 71045; 80053; 80306; 84484; 85025; 93005; 99285

== ENCOUNTER → 2025-08-29 12:13 | Outpatient (BNVA) | payer MEDICARE, MEDICAID, SELFPAY | PROVIDERS: Visit Provider Family Medicine | DX: Z01.818 Encounter for other preprocedural examination (principal) | CPT/HCPCS: 85025 ==

== ENCOUNTER 2025-09-24 11:59 | Observation (INO) | payer MEDICARE, MEDICAID, SELFPAY ==
--- NOTE | 2025-09-23 15:18 | ANES.PREANE2 ---
Pre-Anesthetic Assessment Height/Weight: Height 5 ft 7 in Preop Diagnosis: HGSIL Operation Date: 09/24/25 07:00 Proposed Procedures p Laparoscopic Assist Vaginal Hysterectomy 23380 N94.6 R87.619 R87.613 N87.1(Not Applicable) - Phan Chaudhry MD Was Beta Nadege taken within 24 hours: Yes Was Clonidine taken within 24 hours: N/A Social Tobacco and No alcohol Exam alert, oriented x 3, clear to auscultation bilaterally and regular rate & rhythm Airway Submandibular: within normal limits Cervical ROM: within normal limits Mallampati: Class III Comments: Comments: Poor dentition, denies any loose teeth Anesthetic Plan ASA status: 3 Anesthesia: General Other: No prior issues with anesthesia NPO since yesterday evening History of hypertension on metoprolol and amlodipine Patient experienced an NSTEMI in February 2025, coronary angiogram demonstrating patent flow without disease 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 with normal troponins and EKG History of asthma Labs reviewed 08/29/2025 and acceptable for procedure Plan for general anesthesia Medications/Allergies Home Medications ?Medication ?Instructions ?Recorded ?Confirmed ?Last Taken ?Type aspirin 81 mg tablet 81 mg PO DAILY #30 tabs 03/05/25 09/23/25 09/16/25 Rx nitroglycerin 0.4 mg sublingual 0.4 mg sublingual Q5M PRN chest 03/05/25 09/23/25 Unknown Rx tablet pain #25 tabs metoprolol succinate 25 mg 25 mg PO DAILY #90 tabs 08/12/25 09/23/25 09/16/25 Rx tablet,extended release 24 hr albuterol sulfate 90 mcg/actuation 2 inh inhalation Q6H PRN shortness 08/23/25 09/23/25 Unknown Rx aerosol inhaler (Ventolin HFA) of breath or wheezing #8.5 grams amlodipine 5 mg tablet 5 mg PO BID 09/23/25 09/23/25 09/16/25 History Allergies Allergy/AdvReac Type Severity Reaction Status Date / Time codeine Allergy Unknown Unknown Verified 09/24/25 06:09 ibuprofen Allergy Unknown Verified 09/24/25 06:09 [facility] Anesthesia Medical History (Updated 08/29/25 @ 15:33 by Bud Cintron MD) Seasonal allergic rhinitis due to pollen Ovulation pain History of ovarian cyst Asthma Fall Deltoid tendinitis of left shoulder Family History Grandfather Hypertension Stroke Grandmother Lung disease Stroke Mother Lung disease Denies family history of Colon cancer Ovarian cancer Diabetes Heart disease Breast cancer Uterine cancer Thyroid disease Social History Smoking and tobacco/nicotine status: current every day tobacco/nicotine user Data Anesthesia Cardiac Studies: Echocardiogram 02/24/25 Cardiac Event Monitor 06/18/25
--- NOTE | 2025-09-23 23:18 | W.PM.OPSFHP ---
Same Day Surgery H&P Indication for Procedure/HPI DATE OF PROCEDURE: September 23, 2025 CHIEF COMPLAINT/INDICATIONFOR SURGICAL PROCEDURE: chronic severe dysmenorrhea PREOP DIAGNOSIS: chronic severe dysmenorrhea PLANNED PROCEDURE: Operation Date: 09/24/25 07:00 Proposed Procedures p Laparoscopic Assist Vaginal Hysterectomy 37716 N94.6 R87.619 R87.613 N87.1(Not Applicable) - Phan Chaudhry MD Medications/Allergies* Home Medications ?Medication ?Instructions ?Recorded ?Confirmed ?Type amlodipine 5 mg tablet 5 mg PO BID 09/23/25 09/23/25 History Allergies/Adverse Reactions Allergy/AdvReac Type Severity Reaction Status Date / Time codeine Allergy Unknown Unknown Verified 08/23/25 17:24 ibuprofen Allergy Unknown Verified 08/23/25 17:23 Pertinent History/Comorbid Conditions* Medical History (Updated 08/29/25 @ 15:33 by Bud Cintron MD) Seasonal allergic rhinitis due to pollen Ovulation pain History of ovarian cyst Asthma Fall Deltoid tendinitis of left shoulder Family History (Updated 03/18/23 @ 08:09 by Po Lock) Lung disease Grandmother Mother Hypertension Grandfather Stroke Grandfather Grandmother Denies family history of Colon cancer Ovarian cancer Diabetes Heart disease Breast cancer Uterine cancer Thyroid disease Social History Smoking and tobacco/nicotine status: current every day tobacco/nicotine user Pertinent Exam Findings alert, oriented x 3, clear to auscultation bilaterally and regular rate & rhythm Recommendations Surgery/Procedure today Coding Level of Care Code Acute Code for Chg Fwd
[2025-09-24] VITALS (16 sets, daily range): BP systolic 113–139; BP diastolic 61–82; PULSE 81–108; RESP 16–29; TEMP 36.2–37.1; O2SAT 94–100; BMI 28.3
[2025-09-24 06:25] LABS: OR HCG Qualitative Urine Negative (Negative)
--- NOTE | 2025-09-24 06:26 | W.PM.OPSUD ---
Surgery/Procedure H&P Update DATE OF PROCEDURE: September 24, 2025 DATE H&P PERFORMED: 09/24/25 H&P UPDATE INFORMATION: I have reviewed H&P completed within last 30 days, I have examined patient prior to procedure and No changes to prior documentation PREOP DIAGNOSIS: dysmenorrhea PLANNED PROCEDURE: Operation Date: 09/24/25 07:00 Proposed Procedures p Laparoscopic Assist Vaginal Hysterectomy 09581 N94.6 R87.619 R87.613 N87.1(Not Applicable) - Phan Chaudhry MD
[2025-09-24] MEDS: metroNIDAZOLE IV 500 MG/100 ML PREMIX 100 MG IV (07:00)
[2025-09-24] MEDS: ceFAZolin 2,000 mg SDV 2000 MG IVP (07:02)
--- NOTE | 2025-09-24 11:19 | PM.OP2 ---
Brief Operative Note Date of procedure: 09/24/25 Pre-op diagnosis: dysmenorrhea Post-op diagnosis: same Procedure Done: total laparoscopic hysterectomy; bilateral salpingectomy Surgeon: Phan Chaudhry Estimated blood loss (mL): 300 Complications: none Post-op Plan: floor Condition: stable Disposition: PACU
[2025-09-24] MEDS: fentaNYL 50 mcg/mL INJ 2mL IVP (11:40)
--- NOTE | 2025-09-24 11:58 | PC.NURSE ---
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
--- NOTE | 2025-09-24 12:07 | ANE.PACU2 ---
Inpatient post-anesthesia follow up: Airway intact: Yes Vital signs: Temperature 98.8 F Pulse Rate 96 Respiratory Rate 20 Blood Pressure 126/77 Pulse Oximetry 97 Oxygen Delivery Me thod Room Air Oxygen Flow Rate Fraction of Inspir ed Oxygen Hydration adequate: Yes Nausea and vomiting: No Pain level: 1 Mental status: Baseline
--- NOTE | 2025-09-24 12:10 | PM.OP ---
Operative Report Date of procedure: September 24, 2025 Pre-op diagnosis: chronic severe dysmenorrhea Post-op diagnosis: same Post-op findings: normal uterus, tubes, and ovaries normal pelvis Procedure done: total laparoscopic hysterectomy bilateral salpingectomy Implants: none Specimens removed/disposition: uterus; fallopian tubes Surgeon: Phan Chaudhry MD Straw Hat Brim Raiser Operator: Angel Mcghee MD Anesthesia: General Estimated blood loss (mL): 300 Complications: none Findings: see above Brief History: 34 y.o. with chronic severe dysmenorrhea Procedure: The patient was taken to the operating room, placed supine on the table. General endotracheal anesthesia was induced. A time-out was performed. Two grams of Ancef and 500 mg of Flagyl IV were given. A ansari catheter was placed which drained clear urine. The patient was placed in dorsolithotomy position for laparoscopic surgery. The abdomen and perineum were prepped and draped in the usual sterile fashion. A Reanna uterine manipulator was placed via the cervix for manipulation of the uterus. An umbilical skin incision was made measuring approximately 5 mm. A Veress needle was inserted. After confirming intraperitoneal entry, a pneumoperitoneum was achieved. The Veress needle was removed. A trocar with sheath was placed. A laparoscope was inserted and used to visualize the pelvic organs. Normal uterus, tubes, and ovaries were seen. The remainder of the pelvis was normal. Two additional skin incisions were made measuring 0.5 cm each in the suprapubic and left lower quadrant. 5 mm trocars with sheaths were inserted via these incisions under laparoscopic visualization. A Ligasure device and endograsper were placed. The Ligasure device was used to divide the round ligaments on both sides followed by the uteroovarian ligaments. These were successfully coagulated and divided without any bleeding. The utero-ovarian vessels were identified, sealed and divided and carried through to the round ligaments. The Ligasure device was then used to divide the uterine vessels perpendicular to the ascending branch, at the level of the internal cervical os. Cephalad traction was maintained during this part of the procedure to reduce possible injury to bilateral ureters. The colpotomizer ring was used to identify the cervico-vaginal junction which was entered using the monopolar hook. Circumferential colpotomy was performed using hook monopolar device. The specimen was removed from the vagina without difficulty. Bleeding from the vaginal cuff was controlled using a Stratifix suture placed laparoscopically. The vaginal cuff was closed using O-Vicyl suture ligature, placed vaginally. Bilateral salpingectomy was also performed using the Ligasure device and the fallopian tubes were removed. Inspection of the pelvis using the laparoscope showed good hemostasis and intact bladder. Following this, all instruments were removed from the abdomen after the pneumoperitoneum was allowed to escape. The laparoscopic skin incisions were then closed using 4-O skin sutures. The patient was placed supine and taken to the recovery room. Postoperative condition stable EBL:300 cc Complications: none To PACU in good condition
--- NOTE | 2025-09-24 12:22 | PC.NURSE ---
1216 accepted into room OB 10 with Lilia Mariano RN at side - no distress noted in pt upon this nurse exiting room - pulse 94 - room air 96% temp 97.9 - 130/76
[2025-09-24] MEDS: HYDROmorphone 0.5 MG/0.5 ML INJ IVP (12:30)
--- NOTE | 2025-09-24 19:00 | PC.NURSE ---
patient ambulates well in the [place] x2 laps. standby assistance only
[2025-09-24] MEDS: HYDROcodone-acetaminophen 5-325 mg Tablet PO (22:13)
[2025-09-25 00:30] VITALS: BP 103/63; PULSE 100; RESP 16; O2SAT 96
[2025-09-25 04:48] VITALS: BP 106/57; PULSE 93; RESP 16; TEMP 36.9; O2SAT 97
[2025-09-25 05:04] LABS: Hematocrit 34.5 % (36-47); Hemoglobin 11.70 g/dL (11.27-16.99); Mean Corpuscular HGB Conc 33.9 g/dL (30-55); Mean Corpuscular Hemoglobin 32.1 pg (27-33); Mean Corpuscular Volume 94.8 fl (85-98); Platelet Count 324 10^3/cmm (157-399); Red Blood Count 3.64 10^6/uL (3.85-5.65); White Blood Count 14.85 10^3/uL (3.29-11.43)
[2025-09-25 11:20] VITALS: BP 107/61; PULSE 98; RESP 16; TEMP 37; O2SAT 99
--- NOTE | 2025-09-25 12:05 | P.PN_ITS ---
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: Interval history: c/o mild abdominal pain, relieved with pain medications eating, voiding, ambulating well no bleeding / discharge Vitals/I&O/Wt Last Vital Signs Temp 98.6 F 09/25/25 11:20 Pulse 98 09/25/25 11:20 Resp 16 09/25/25 11:20 BP 107/61 09/25/25 11:20 Pulse Ox 99 09/25/25 11:20 O2 Del Method Room Air 09/25/25 04:48 Physical Exam 2 Narrative: Comfortable, in no distress Awake, alert Afebrile, VS normal Lungs: clear Cor: RRR Abd: soft, nondistended, nontender Laparoscopic incisions clean and dry Ext: normal Urinary Catheter Management: Bridges Latex: Cath Placed During This Visit: yes, but has since been removed by the nurse Reason for Continuing Indwelling Catheter: Decision to DC Catheter Urinary Catheter Date of Insertion: 09/24/25 Date Urinary Catheter Removed: 09/25/25 Time Urinary Catheter Discontinued: 04:53 Data 09/25/25 05:00 A&P Assessment and plan 1. S/P hysterectomy: s/p total laparoscopic hysterectomy, bilateral salpingectomy POD #1 Doing well Plan discharge to home Call / return if fever, chills, abdominal pain, bleeding f/u in one week PDMP PDMP Reviewed: Last Reviewed 09/25/25 12:05 EST by Phan Chaudhry MD Attestations 2 Medical Necessity Statement*: patient s/p hysterectomy; plan to discharge to home today Coding Level of Care Code Acute Code for Chg Fwd Diagnoses S/P hysterectomy Z90.710
--- NOTE | 2025-09-25 14:10 | PM.OBGYDC ---
Discharge Providers FISHER SCALLOP Date of Admission: 09/24/25 11:59 Date of Discharge: 09/25/25 Attending Provider at Admission: Phan Chaudhry MD Attending Provider at Discharge: Phan Chaudhry MD Consults: none Primary FISHER SCALLOP: Phan Chaudhry MD Primary Care Provider: Vanda Wick NP Diagnoses at Discharge Discharge Diagnosis 1. S/P hysterectomy: Details from hospital stay: 34 y.o. history of painful, heavy periods and cervical INDIRA II admitted for hysterectomy total laparoscopic hysterectomy and bilateral salpingectomy done without any complications patient did well postoperatively and was discharged to home on the first postoperative day Reason for Visit Reason for Visit: R87.613 Brief History: 34 y.o. history of painful, heavy periods and cervical INDIRA II admitted for hysterectomy Hospital Course Hospital Course 34 y.o. history of painful, heavy periods and cervical INDIRA II admitted for hysterectomy total laparoscopic hysterectomy and bilateral salpingectomy done without any complications patient did well postoperatively and was discharged to home on the first postoperative day Physical Exam Narrative: Comfortable, in no distress Awake, alert Afebrile, VS normal Lungs: clear Cor: RRR Abd: soft, nondistended, nontender Laparoscopic incisions clean and dry Ext: normal Urinary Catheter Management: Bridges Latex: Cath Placed During This Visit: yes, but has since been removed by the nurse Reason for Continuing Indwelling Catheter: Decision to DC Catheter Urinary Catheter Date of Insertion: 09/24/25 Date Urinary Catheter Removed: 09/25/25 Time Urinary Catheter Discontinued: 04:53 History History History 1 Term 1 0 Miscarriages/Ectopic 0 Living Children 1 Past Pregnancies Del. Date GA/Weeks Outcome Route Wt Inf Gender Labor Lgth Comp. Anesthesia Location 07/29/16 37 live - Vaginal 5 lb 5 oz Female [facility] Discharge Data Studies Completed and Pending Completed Studies During Hospitalization Category Date Time Status Pathology: Surgical [PTH] Routine Pth 09/24/25 11:04 Completed Laboratory Results WBC 14.85 10^3/uL (3.29-11.43) H 09/25/25 05:00 RBC 3.64 10^6/uL (3.85-5.65) L 09/25/25 05:00 Hgb 11.70 g/dL (11.27-16.99) 09/25/25 05:00 Hct 34.5 % (36-47) L 09/25/25 05:00 MCV 94.8 fl (85-98) 09/25/25 05:00 MCH 32.1 pg (27-33) 09/25/25 05:00 MCHC 33.9 g/dL (30-55) 09/25/25 05:00 RDW 12.1 % (12.1-15.1) 09/25/25 05:00 Plt Count 324 10^3/cmm (157-399) 09/25/25 05:00 MPV 9.6 fL (7.4-10.4) 09/25/25 05:00 Urine HCG, Qual Negative (Negative) 09/24/25 06:23 Blood Type B Negative 09/24/25 06:50 Rho(D) Type Rh negative 09/24/25 06:50 Antibody Screen Negative 09/24/25 06:50 Procedures Performed total laparoscopic hysterectomy bilateral salpingectomy Vitals Last Vital Signs Temp 98.6 F 09/25/25 11:20 Pulse 98 09/25/25 11:20 Resp 16 09/25/25 11:20 BP 107/61 09/25/25 11:20 Pulse Ox 99 09/25/25 11:20 O2 Del Method Room Air 09/25/25 04:48 Results Labs OB ([facility]): Blood Type B Negative 09/24/25 Antibody Screen Negative 09/24/25 Hct, (36-47) 34.5 % L 09/25/25 Hgb, (11.27-16.99) 11.70 g/dL 09/25/25 Rho(D) Type Rh negative 09/24/25 Plt Count, (157-399) 324 10^3/cmm 09/25/25 Hep Bs Antigen, (Nonreactive) Non-reactive 02/24/25 Hep B Core Total Ab, (Nonreactive) Non-reactive 02/24/25 Hep Bs Antibody, (11.5-1000) 13.2 02/24/25 Hepatitis C Antibody, (Nonreactive) Non-reactive 02/24/25 HIV 1&2 Ab & HIV 1 Ag, (Non-Reactiv) Non-reactive 02/24/25 TSH, (0.27-4.20) 0.92 uIU/mL 02/24/25 Hemoglobin A1c, (4.0-6.0) 4.6 % 02/24/25 HCG, Qual, (Negative) Negative 02/24/25 Urine Opiates Screen, (Negative) Negative ng/mL 06/26/25 Ur Barbiturates Screen, (Negative) Negative ng/mL 06/26/25 Ur Phencyclidine Scrn, (Negative) Negative ng/mL 06/26/25 Ur Amphetamines Screen, (Negative) Negative ng/mL 06/26/25 U Benzodiazepines Scrn, (Negative) Negative ng/mL 06/26/25 Urine Cocaine Screen, (Negative) Negative ng/mL 06/26/25 U Marijuana (THC) Screen, (Negative) Negative ng/mL 06/26/25 Discharge Plan Discharge Patient Disposition: Home Condition: Stable Prescriptions: New oxycodone-acetaminophen [Percocet] 5-325 mg tablet 1 tab PO Q6H PRN (Reason: pain) Qty: 30 0RF Continued aspirin 81 mg tablet 81 mg PO DAILY Qty: 30 6RF nitroglycerin 0.4 mg tablet, sublingual 0.4 mg sublingual Q5M PRN (Reason: chest pain) Qty: 25 3RF Rx Instructions: do not exceed 3 doses per episode albuterol sulfate [Ventolin HFA] 90 mcg/actuation HFA aerosol inhaler 2 inh inhalation Q6H PRN (Reason: shortness of breath or wheezing) Qty: 8.5 0RF metoprolol succinate 25 mg tablet extended release 24 hr 25 mg PO DAILY Qty: 90 3RF amlodipine 5 mg tablet 5 mg PO BID Discharge Order = DC NOW: Discharge Order (Routine); Ordered 09/25/25 Ordered By: Phan Chaudhry Referrals: Phan Chaudhry MD [Physician, FISHER SCALLOP] - 10/02/25 9:00 am Discharge Diet: Usual diet Discharge Activity: Increase activity as tolerated Patient Instructions: Acute Wound Care (DC), Opioid Safety (DC), Vaginal Hysterectomy (DC), OB Food/Drug Interaction Guide, Opioid Safety, Post Anesthesia Care, Patient Portal & Pedro Instructions Discharge Attestations FISHER SCALLOP Time Spent in Discharge Care*: less than 30 min Coding Level of Care Code Acute Code for Chg Fwd Diagnoses S/P hysterectomy Z90.710
== END 2025-09-25 12:00 | disposition home or self-care (01) ==
LOC: OBGYN 12:01
PROVIDERS: Admitting Provider Obstetrics & Gynecology; Visit Provider Obstetrics & Gynecology
PROC: 0UT9FZZ Resection of Uterus, Via Natural or Artificial Opening With Percutaneous Endoscopic Assistance (ICD-10-PCS; CPT 58571; principal; 2025-09-24 07:00)
DX: N94.6 Dysmenorrhea, unspecified (principal); N80.03 Adenomyosis of the uterus; N87.9 Dysplasia of cervix uteri, unspecified; I10 Essential (primary) hypertension; I25.2 Old myocardial infarction; J45.909 Unspecified asthma, uncomplicated; Z79.82 Long term (current) use of aspirin; F17.200 Nicotine dependence, unspecified, uncomplicated
CPT/HCPCS: 58571; 36415; 81025; 85027; 86850; 86900; 88307; 96374; 96376; A4216; C1713; G0378; J0690; J1171; J1885; J2250; J2704; J3010; J3490; J7030; J7121; J9999